=== PATIENT | female | born 1985 | race African-American/Black ===

== ENCOUNTER 2020-03-04 05:28 | Emergency (ER) | payer SELFPAY ==
[~2020-03-04] VITALS: Ht 172.7 cm; Wt 2.5 kg
--- NOTE | 2020-03-04 05:30 | NUR ---
ED Nurse Note: Patient brought in by ambulance RA [id number] from home with c/o abdominal pain onset 2 days ago. Patient rates pain 10/10 and on epigastric area. Patient has hx of ulcers and was seen at [place] for same problem and was taking antacids. Patient is nauseated and vomited at bedside approx 20mls of gastric juice. Patient denies injury/trauma, fever and chills, CP/SOB/, blood in stool. Patient is AAOX4 and ambulatory
--- NOTE | 2020-03-04 05:31 | NUR ---
ED Nurse Note: ERMD at bedside
--- NOTE | 2020-03-04 05:38 | Emergency Room Report ---
History of Present Illness General Chief Complaint: To Be Triaged Source: Patient, EMS (Gera Negron MD) Present Illness HPI This is a 34-year-old female with history of chronic abdominal pain. She says she gets it frequently since 2018. She said is due to stress. She presents with complaint abdominal pain. Onset for last 2 days. She has nausea and vomiting. Unable to keep anything down. No fever or chills. No diarrhea. Pain is 10 out of 10. Nothing made it better. Nothing made it worse. She was just at [facility] yesterday and was discharged with prescription for medication. She says she is unable to fill the until Thursday. Pain came back so she called 911. (Gera Negron MD) Allergies: Uncoded Allergies: PENICILLIN (Allergy, Mild, 03/04/20) COVID-19 Screening Contact w/high risk pt: No Experienced COVID-19 symptoms?: Yes COVID-19 Testing performed EMERGENCY MEDCL EMT: No (Gera Negron MD) Patient History Past Medical History: see triage record, old chart reviewed Past Surgical History: other Pertinent Family History: none Social History: Denies: smoking Last Menstrual Period: UNK Now: No : 0 Para: 0 Immunizations: other Reviewed Nursing Documentation: PMH: Agreed; PSxH: Agreed (Gera Negron MD) Nursing Documentation-PMH Past Medical History: No History, Except For Hx Gastrointestinal Problems: Yes - ULCERS (Gera Negron MD) Review of Systems Eye: Denies: eye pain, blurred vision ENT: Denies: ear pain, nose congestion, throat swelling Respiratory: Denies: cough, shortness of breath Cardiovascular: Denies: chest pain, palpitations Gastrointestinal: Reports: abdominal pain, nausea, vomiting; Denies: diarrhea Musculoskeletal: Denies: back pain, joint pain Skin: Denies: rash Neurological: Denies: headache, numbness Endocrine: Denies: increased thirst, increased urine Hematologic/Lymphatic: Denies: easy bruising All Other Systems: negative except mentioned in HPI (Gera Negron MD) Physical Exam Vital Signs Date Time Temp Pulse Resp B/P (MAP) Pulse Ox O2 Delivery O2 Flow Rate FiO2 03/04/20 05:22 98.2 70 24 116/72 (87) 99 Room Air Vitals normal Sp02 EP Interpretation: reviewed, normal General Appearance: well appearing, no apparent distress, alert Head: normocephalic, atraumatic Eyes: bilateral eye PERRL, bilateral eye EOMI ENT: hearing grossly normal, normal pharynx Neck: full range of motion, supple, no meningismus Respiratory: chest non-tender, lungs clear, normal breath sounds Cardiovascular #1: regular rate, rhythm, no murmur Gastrointestinal: no mass, no organomegaly, no bruit, non-distended, tenderness - Diffuse. Mild. Abdomen is soft., decreased bowel sounds Musculoskeletal: back normal, normal range of motion, gait/station normal Psychiatric: mood/affect normal (Gera Negron MD) Medical Decision Making Diagnostic Impression: Primary Impression: Abdominal pain Qualified Codes: R10.84 - Generalized abdominal pain Additional Impressions: Vomiting Qualified Codes: R11.2 - Nausea with vomiting, unspecified Cannabinoid hyperemesis syndrome ER Course Patient presents with abdominal pain. This appear to be exacerbation of chronic problem. Abdominal exam is soft. Labs are pending. I will sign this patient out to Dr. Perez. (Gera Negron MD) ER Course Patient was initially seen by Dr. Gera Negron and and then signed out to me for final disposition. I have also seen the patient. And fully examined the patient. Patient's physical exam are such that she was nauseous and slightly tender in the epigastrium. Patient received pain medications prior to my evaluation. Of which patient was very comfortable when I saw her. With only very mild epigastric discomfort. She was a little sleepy. Patient's laboratory work-up was negative. Patient received a total of 2 L fluid bolus in the emergency department. Patient was reevaluated after receiving the fluid bolus pain medications and laboratory work-up. Patient states that she has no symptoms at this time would like to be discharged. Patient states that she does have a history of this occurring in the past. She was actually seen at [facility] where she had a full work-up and was given a prescription for Zofran and Pepcid. We also discovered the THC in patient's urine. I informed the patient that this sometimes can cause cannabinoid hyperemesis syndrome and advised that she discontinue any further use of THC. Patient voiced understanding. Patient was given a prescription for Zofran and omeprazole. Patient is advised to follow up with primary doctor in 2-3 days and return the emergency room for any worsening symptoms and as needed. Labs Test 03/04/20 05:40 03/04/20 06:00 White Blood Count 4.7 K/UL (4.8-10.8) Red Blood Count 4.41 M/UL (4.20-5.40) Hemoglobin 9.7 G/DL (12.0-16.0) Hematocrit 32.7 % (37.0-47.0) Mean Corpuscular Volume 74 FL (80-99) Mean Corpuscular Hemoglobin 22.1 PG (27.0-31.0) Mean Corpuscular Hemoglobin Concent 29.8 G/DL (32.0-36.0) Red Cell Distribution Width 17.4 % (11.6-14.8) Platelet Count 184 K/UL (150-450) Mean Platelet Volume 14.4 FL (6.5-10.1) Neutrophils (%) (Auto) 59.3 % (45.0-75.0) Lymphocytes (%) (Auto) 26.4 % (20.0-45.0) Monocytes (%) (Auto) 12.5 % (1.0-10.0) Eosinophils (%) (Auto) 0.5 % (0.0-3.0) Basophils (%) (Auto) 1.3 % (0.0-2.0) Sodium Level 141 MMOL/L (136-145) Potassium Level 3.3 MMOL/L (3.5-5.1) Chloride Level 105 MMOL/L (98-107) Carbon Dioxide Level 23 MMOL/L (21-32) Anion Gap 13 mmol/L (5-15) Blood Urea Nitrogen 6 mg/dL (7-18) Creatinine 0.9 MG/DL (0.55-1.30) Estimat Glomerular Filtration Rate > 60 mL/min (>60) Glucose Level 96 MG/DL (74-106) Calcium Level 8.4 MG/DL (8.5-10.1) Total Bilirubin 0.5 MG/DL (0.2-1.0) Aspartate Amino Transf (AST/SGOT) 19 U/L (15-37) Alanine Aminotransferase (ALT/SGPT) 13 U/L (12-78) Alkaline Phosphatase 54 U/L (46-116) Total Protein 7.7 G/DL (6.4-8.2) Albumin 3.8 G/DL (3.4-5.0) Globulin 3.9 g/dL Albumin/Globulin Ratio 1.0 (1.0-2.7) Lipase 176 U/L (73-393) Urine Color Pale yellow Urine Appearance Slightly cloudy Urine pH 8 (4.5-8.0) Urine Specific [place] 1.015 (1.005-1.035) Urine Protein 1+ (NEGATIVE) Urine Glucose (UA) Negative (NEGATIVE) Urine Ketones 4+ (NEGATIVE) Urine Blood Negative (NEGATIVE) Urine Nitrite Negative (NEGATIVE) Urine Bilirubin Negative (NEGATIVE) Urine Urobilinogen Normal MG/DL (0.0-1.0) Urine Leukocyte Esterase Negative (NEGATIVE) Urine RBC 0-2 /HPF (0 - 2) Urine WBC 0-2 /HPF (0 - 2) Urine Squamous Epithelial Cells Moderate /LPF (NONE/OCC) Urine Bacteria Many /HPF (NONE) Urine HCG, Qualitative Negative (NEGATIVE) Urine Opiates Screen Negative (NEGATIVE) Urine Barbiturates Screen Negative (NEGATIVE) Phencyclidine (PCP) Screen Negative (NEGATIVE) Urine Amphetamines Screen Negative (NEGATIVE) Urine Benzodiazepines Screen Negative (NEGATIVE) Urine Cocaine Screen Negative (NEGATIVE) Urine Marijuana (THC) Screen Positive (NEGATIVE) (Darshan Perez MD) Last Vital Signs Date Time Temp Pulse Resp B/P (MAP) Pulse Ox O2 Delivery O2 Flow Rate FiO2 03/04/20 05:22 98.2 70 24 116/72 (87) 99 Room Air Status: improved (Gera Negron MD) Status: improved (Darshan Perez MD) Disposition: HOME, SELF-CARE Condition: Stable Scripts Ondansetron (Zofran) 4 Mg Tablet 4 MG ORAL Q6H PRN for Nausea & Vomiting, #20 TAB 0 Refills Prov: Darshan Perez MD 03/04/20 Omeprazole (OMEPRAZOLE) 40 Mg Capsule. 40 MG ORAL DAILY for Gerd, #30 CAP Prov: Darshan Perez MD 03/04/20 Gera Negron MD Mar 04, 2020 05:38 Darshan Perez MD Mar 04, 2020 07:45
[2020-03-04] MEDS ORDERED: Pantoprazole Inj IVP ONE (05:45)
[2020-03-04] MEDS ORDERED: LORazepam Inj 2mg/ml 1ml IV ONE (05:45)
[2020-03-04] MEDS ORDERED: Morphine Sulfate 4mg/ml Inj (IV USE ONLY) IVP ONE (05:45)
--- NOTE | 2020-03-04 05:45 | NUR ---
ED Nurse Note: Blood and urine sent to lab
[2020-03-04 05:57] LABS: ANION GAP 13 mmol/L (5-15); BLOOD UREA NITROGEN 6 mg/dL (7-18); CALCIUM 8.4 MG/DL (8.5-10.1); CARBON DIOXIDE 23 MMOL/L (21-32); CHLORIDE 105 MMOL/L (98-107); CREATININE 0.9 MG/DL (0.55-1.30); POTASSIUM 3.3 MMOL/L (3.5-5.1); SODIUM 141 MMOL/L (136-145)
[2020-03-04 06:01] LABS: ALANINE AMINOTRANSFERASE 13 U/L (12-78); ALBUMIN 3.8 G/DL (3.4-5.0); ALKALINE PHOSPHATASE 54 U/L (46-116); ASPARTATE AMINO TRANSFERASE 19 U/L (15-37); BILIRUBIN,TOTAL 0.5 MG/DL (0.2-1.0)
[2020-03-04 06:03] VITALS: BP 125/85
[2020-03-04 06:05] LABS: BASOPHILS % (AUTO) 1.3 % (0.0-2.0); EOSINOPHILS % (AUTO) 0.5 % (0.0-3.0); HEMATOCRIT 32.7 % (37.0-47.0); HEMOGLOBIN 9.7 G/DL (12.0-16.0); LYMPHOCYTES % (AUTO) 26.4 % (20.0-45.0); MEAN CORPUSCULAR VOLUME 74 FL (80-99); MONOCYTES % (AUTO) 12.5 % (1.0-10.0); NEUTROPHILS % (AUTO) 59.3 % (45.0-75.0); PLATELET COUNT 184 K/UL (150-450); RED BLOOD COUNT 4.41 M/UL (4.20-5.40); RED CELL DISTRIBUTION WIDTH 17.4 % (11.6-14.8); WHITE BLOOD COUNT 4.7 K/UL (4.8-10.8)
[2020-03-04 06:14] LABS: APPEARANCE,URINE SLIGHTLY CLOUDY; BILIRUBIN, URINE NEGATIVE (NEGATIVE); GLUCOSE, URINE (UA) NEGATIVE (NEGATIVE); KETONES,URINE 4+ (NEGATIVE); LEUKOCYTE ESTERASE ,URINE NEGATIVE (NEGATIVE); NITRITE,URINE NEGATIVE (NEGATIVE); PH,URINE 8 (4.5-8.0); PROTEIN,URINE 1+ (NEGATIVE); UROBILINOGEN,URINE NORMAL MG/DL (0.0-1.0)
[2020-03-04 06:24] LABS: COLOR,URINE PALE YELLOW
--- NOTE | 2020-03-04 07:03 | NUR ---
HAND-OFF: Report given to ELOISE Eller
[2020-03-04] MEDS ORDERED: OMEPRAZOLE40 M1 ORAL (07:40)
--- NOTE | 2020-03-04 07:40 | NUR ---
ED Nurse Note: DR Perez at the bed side. Patient awake and responding well at this time. Patient reports lower abd pain and not actively vomiting at this time.
[2020-03-04] MEDS ORDERED: ZOFRAN4 MG ORAL (07:42)
[2020-03-04 07:53] VITALS: BP 122/70
--- NOTE | 2020-03-04 07:53 | NUR ---
Note robin in EDM - 03/04/20 at 0831 by AYAH ER DISCHARGE NOTE: Patient is cleared to be discharged per ERMD, pt is aox4, on room air, with stable vital signs. pt was given dc and prescription instructions, pt was able to verbalize understanding, pt id band and iv site removed without complications. pt is able to ambulate with steady gait. pt took all belongings.
--- NOTE | 2020-03-04 07:53 | NUR ---
Note robin in EDM - 03/04/20 at 0832 by AYAH ER DISCHARGE NOTE: Patient is cleared to be discharged per ERMD, pt is aox4, on room air, with stable vital signs. pt was given dc and prescription instructions, pt was able to verbalize understanding, pt id band and iv site removed without complications. pt was assisted on a wheelchair to a car. pt took all belongings and left with her roommate.
[2020-03-04 08:30] VITALS: BP 122/70
--- NOTE | 2020-03-04 08:30 | NUR ---
ER DISCHARGE NOTE: Patient is cleared to be discharged per ERMD, pt is aox4, on room air, with stable vital signs. pt was given dc and prescription instructions, pt was able to verbalize understanding, pt id band and iv site removed without complications. pt was assisted on a wheelchair to a car. pt took all belongings and left with her roommate.
== END 2020-03-04 08:30 | disposition home or self-care (01) ==
LOC: EDBD 05:28 → EMR 05:37
DX: R10.84 Generalized abdominal pain (principal); R11.2 Nausea with vomiting, unspecified; Z88.0 Allergy status to penicillin
CPT/HCPCS: 36415; 80053; 80307; 81003; 81025; 83690; 85025; 87086; 96361; 96374; 96375; 96376; 99284; C9113; J2270; J2405; J7030

== ENCOUNTER 2020-03-05 04:38 | Emergency (ER) | payer SELFPAY ==
[~2020-03-05] VITALS: Ht 170.2 cm; Wt 80.7 kg
[~2020-03-05 04:38] MED LIST: OMEPRAZOLE40 M1 ORAL; ZOFRAN4 MG ORAL
--- NOTE | 2020-03-05 04:50 | NUR ---
ED Nurse Note: Patient brought in by ambulance [id number] from home d/t n/v and abdominal pain 10/10 for 3 days, patient reports she was diagnosed with stomach ulcers yesterday. Patient aao x 4 and ambulatory. Patient changed into gown and placed on nuclear monitoring technician. No acute distress noted during assessment.
[2020-03-05 04:52] VITALS: BP 129/78
--- NOTE | 2020-03-05 04:52 | Emergency Room Report ---
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 She presents with chief complaint abdominal pain with nausea and vomiting. Onset today. She was here 24 hours ago for the same thing. Before that she was at [place]. She said that she could not fill her medication until Thursday. This is a recurrent issue for her. She did well when she was here yesterday after IV fluid and pain medication. She was able to tolerate p.o. intake. When she went home symptoms came back when she started trying to eat and drink again. Pain is sharp in nature. 10 out of 10. Vomiting is nonbloody nonbilious. Nothing made it better. Drinking made it worse. Denies any other complaint. (Gera Negron MD) Allergies: Uncoded Allergies: PENICILLIN (Allergy, Mild, 03/04/20) COVID-19 Screening Contact w/high risk pt: No Experienced COVID-19 symptoms?: No COVID-19 Testing performed BATCH MIXER: No (Gera Negron MD) Patient History Past Medical History: see triage record, old chart reviewed Past Surgical History: none Pertinent Family History: none Social History: Denies: smoking Last Menstrual Period: 02/02/20 Now: No Immunizations: other Reviewed Nursing Documentation: PMH: Agreed; PSxH: Agreed (Gera Negron MD) Nursing Documentation-PMH Past Medical History: No History, Except For Hx Gastrointestinal Problems: Yes - ULCERS (Gera Negron MD) Review of Systems Eye: Denies: eye pain, blurred vision ENT: Denies: ear pain, nose congestion, throat swelling Respiratory: Denies: cough, shortness of breath Cardiovascular: Denies: chest pain, palpitations Gastrointestinal: Reports: abdominal pain, nausea, vomiting; Denies: diarrhea Musculoskeletal: Denies: back pain, joint pain Skin: Denies: rash Neurological: Denies: headache, numbness Endocrine: Denies: increased thirst, increased urine Hematologic/Lymphatic: Denies: easy bruising All Other Systems: negative except mentioned in HPI (Gera Negron MD) Physical Exam Vital Signs Date Time Temp Pulse Resp B/P (MAP) Pulse Ox O2 Delivery O2 Flow Rate FiO2 03/05/20 04:40 99.0 54 18 133/74 (93) 100 Room Air Vitals normal Sp02 EP Interpretation: reviewed, normal General Appearance: well appearing, no apparent distress, alert Head: normocephalic, atraumatic Eyes: bilateral eye PERRL, bilateral eye EOMI ENT: hearing grossly normal, normal pharynx Neck: full range of motion, supple, no meningismus Respiratory: chest non-tender, lungs clear, normal breath sounds Cardiovascular #1: regular rate, rhythm, no murmur Gastrointestinal: normal bowel sounds, no mass, no organomegaly, no bruit, non- distended, tenderness - Diffuse Musculoskeletal: back normal, normal range of motion, gait/station normal Psychiatric: mood/affect normal (Gera Negron MD) Medical Decision Making Diagnostic Impression: Primary Impression: Abdominal pain Qualified Codes: R10.84 - Generalized abdominal pain Additional Impression: Cannabinoid hyperemesis syndrome ER Course Presents with abdominal pain with vomiting. This is probably cyclic vomiting syndrome secondary to cannabis use. No evidence of an acute abdomen. Patient will be hydrated. If not better, may need to be admitted to the hospital. (Gera Negron MD) ER Course Patient signed out to me pending reassessment. She has had multiple recent visits for cyclical vomiting. Patient observed by me for an additional 2 hours with no recurrent vomiting. Sleeping comfortably. Pain controlled. On my reassessment feeling improved. Will be discharged home. She does have prescriptions for antiemetics that she has not filled from her recent visit. I instructed her to fill this medication today. Avoid marijuana use. And follow- up with PMD. Given return precautions. (Dre Sotelo M.D.) Last Vital Signs Date Time Temp Pulse Resp B/P (MAP) Pulse Ox O2 Delivery O2 Flow Rate FiO2 03/05/20 04:40 99.0 54 18 133/74 (93) 100 Room Air Status: improved (Gera Negron MD) Disposition: HOME, SELF-CARE Condition: Stable Referrals: NOT CHOSEN IPA/,REFERRING (PCP) Gera Negron MD Mar 05, 2020 04:52 Dre Sotelo M.D. Mar 05, 2020 07:22
[2020-03-05] MEDS ORDERED: Morphine Sulfate 4mg/ml Inj (IV USE ONLY) IVP ONE ×2 (05:00→06:00)
[2020-03-05 05:11] LABS: BASOPHILS % (AUTO) 2.2 % (0.0-2.0); HEMATOCRIT 32.3 % (37.0-47.0); HEMOGLOBIN 9.4 G/DL (12.0-16.0); LYMPHOCYTES % (AUTO) 53.2 % (20.0-45.0); MEAN CORPUSCULAR VOLUME 76 FL (80-99); MONOCYTES % (AUTO) 7.1 % (1.0-10.0); NEUTROPHILS % (AUTO) 37.5 % (45.0-75.0); PLATELET COUNT 162 K/UL (150-450); RED BLOOD COUNT 4.23 M/UL (4.20-5.40); RED CELL DISTRIBUTION WIDTH 17.1 % (11.6-14.8); WHITE BLOOD COUNT 9.1 K/UL (4.8-10.8)
[2020-03-05 05:13] LABS: ANION GAP 14 mmol/L (5-15); BLOOD UREA NITROGEN 4 mg/dL (7-18); CALCIUM 8.5 MG/DL (8.5-10.1); CARBON DIOXIDE 22 MMOL/L (21-32); CHLORIDE 104 MMOL/L (98-107); CREATININE 0.9 MG/DL (0.55-1.30); POTASSIUM 3.2 MMOL/L (3.5-5.1); SODIUM 140 MMOL/L (136-145)
[2020-03-05 05:17] LABS: ALANINE AMINOTRANSFERASE 13 U/L (12-78); ALBUMIN 3.7 G/DL (3.4-5.0); ALBUMIN/GLOBULIN RATIO 0.9 (1.0-2.7); ALKALINE PHOSPHATASE 51 U/L (46-116); ASPARTATE AMINO TRANSFERASE 17 U/L (15-37); BILIRUBIN,TOTAL 0.6 MG/DL (0.2-1.0)
--- NOTE | 2020-03-05 05:31 | NUR ---
ED Nurse Note: urine collected and sent to lab
[2020-03-05 05:45] LABS: APPEARANCE,URINE CLEAR; BILIRUBIN, URINE NEGATIVE (NEGATIVE); COLOR,URINE PALE YELLOW; GLUCOSE, URINE (UA) NEGATIVE (NEGATIVE); KETONES,URINE 4+ (NEGATIVE); LEUKOCYTE ESTERASE ,URINE NEGATIVE (NEGATIVE); NITRITE,URINE NEGATIVE (NEGATIVE); PH,URINE 6 (4.5-8.0); PROTEIN,URINE NEGATIVE (NEGATIVE); UROBILINOGEN,URINE NORMAL MG/DL (0.0-1.0)
[2020-03-05 07:30] VITALS: BP 133/74
--- NOTE | 2020-03-05 07:30 | NUR ---
ER DISCHARGE NOTE: Patient is cleared to be discharged per ERMD, pt is aox4, on room air, with stable vital signs. pt was given dc and prescription instructions, pt was able to verbalize understanding, pt id band and iv site removed without complications. pt is able to ambulate with steady gait. pt took all belongings.
[2020-03-06] MEDS ORDERED: FAMOTIDINE20 MG ORAL (13:40)
[2020-03-06] MEDS ORDERED: ZOFRAN4 M3 ORAL (13:40)
== END 2020-03-05 07:30 | disposition home or self-care (01) ==
LOC: EDBD 04:38 → EMR 04:48
DX: F12.988 Cannabis use, unspecified with other cannabis-induced disorder (principal); R10.84 Generalized abdominal pain; Z88.0 Allergy status to penicillin; R11.10 Vomiting, unspecified
CPT/HCPCS: 36415; 80053; 81003; 81025; 83690; 85025; 96361; 96374; 96375; 96376; 99284; J2270; J2405; J7030

== ENCOUNTER 2020-03-06 11:17 | Inpatient (IN) | payer MEDICAID ==
[~2020-03-06] VITALS: Ht 170.2 cm; Wt 78.9 kg
[2020-03-06 11:40] VITALS: BP 113/69
--- NOTE | 2020-03-06 11:50 | NUR ---
ED Nurse Note: Patient walked in to ER from home c/o abd N/V and abd pain since 03/03, pt states that she has been in and out of the hospital for these symptoms, has been taking famotidine and ondansetron as prescribed at home but they are not working. Patient presented anxious, AAO x4, VSS at this time.
[2020-03-06] MEDS ORDERED: Haloperidol 5mg/ml Inj IM ONE (12:00)
--- NOTE | 2020-03-06 12:09 | NUR ---
ED Nurse Note: IV line was established on right AC 20ga, blood and urine specinens were colected sent to lab
[2020-03-06 12:23] LABS: HEMATOCRIT 36.9 % (37.0-47.0); HEMOGLOBIN 10.3 G/DL (12.0-16.0); MEAN CORPUSCULAR VOLUME 79 FL (80-99); PLATELET COUNT 60 K/UL (150-450); RED BLOOD COUNT 4.67 M/UL (4.20-5.40); RED CELL DISTRIBUTION WIDTH 17.4 % (11.6-14.8); WHITE BLOOD COUNT 10.7 K/UL (4.8-10.8)
[2020-03-06] MEDS ORDERED: Morphine Sulfate 4mg/ml Inj (IV USE ONLY) IVP ONE ×2 (12:30→13:45)
[2020-03-06 12:39] LABS: ALANINE AMINOTRANSFERASE 9 U/L (12-78); ALBUMIN 4.2 G/DL (3.4-5.0); ALKALINE PHOSPHATASE 60 U/L (46-116); ANION GAP 16 mmol/L (5-15); ASPARTATE AMINO TRANSFERASE 16 U/L (15-37); BILIRUBIN,TOTAL 0.6 MG/DL (0.2-1.0); BLOOD UREA NITROGEN 5 mg/dL (7-18); CALCIUM 8.9 MG/DL (8.5-10.1); CARBON DIOXIDE 22 MMOL/L (21-32); CHLORIDE 101 MMOL/L (98-107); CREATININE 0.9 MG/DL (0.55-1.30); SODIUM 139 MMOL/L (136-145)
[2020-03-06 12:42] LABS: APPEARANCE,URINE SLIGHTLY CLOUDY; BILIRUBIN, URINE NEGATIVE (NEGATIVE); COLOR,URINE PALE YELLOW; GLUCOSE, URINE (UA) NEGATIVE (NEGATIVE); KETONES,URINE 4+ (NEGATIVE); LEUKOCYTE ESTERASE ,URINE NEGATIVE (NEGATIVE); NITRITE,URINE NEGATIVE (NEGATIVE); PH,URINE 6 (4.5-8.0); PROTEIN,URINE NEGATIVE (NEGATIVE); UROBILINOGEN,URINE NORMAL MG/DL (0.0-1.0)
[2020-03-06 12:56] VITALS: BP 122/81
[2020-03-06] MEDS ORDERED: Omnipaque-300 100ml vial INJ PRN (13:15)
[2020-03-06] MEDS ORDERED: cefTRIAXone 1 GM in NS 55 ML IVPB ONE (13:30)
--- NOTE | 2020-03-06 13:38 | Emergency Room Report ---
History of Present Illness General Chief Complaint: Abdominal Pain Source: Patient Present Illness HPI 34-year-old female with past medical history of marijuana use presents with chief complaint of diffuse abdominal pain. She was seen yesterday and the day before in the emergency department. She states that she has been compliant with the medication she was prescribed. She has been taking Zofran and Pepcid without relief of her abdominal pain, nausea, and vomiting. She denies melena, hematochezia, dysuria, hematuria, fall, trauma, fever, chest pain, shortness of breath, cough or any other symptoms. The patient's symptoms were gradual onset, severity was moderate, duration since 3 days. She states she last smoked marijuana several weeks ago, however there is secondhand smoke in her house and has been exposed for the past several days.. Quality: Aching. Poorly localized. Denies heavy menstrual bleeding Past medical history: Marijuana use Past surgical history: Denies Smoking: Denies Alcohol use: Denies Drug use: ++ Marijuana Review of systems: CONST: No fevers ++ chills, No night sweats PULMONARY: No productive cough, No shortness of breath CARDIAC: No chest pain, No palpitations GI: ++ vomiting, No diarrhea , No melena_or_BRBPR : No dysuria, No hematuria, No discharge NEURO: No new_focal_weakness_or_numbness, No confusion, No vision changes 14 point Review of Systems is otherwise negative except per HPI Physical Exam: GENERAL: Awake_alert_ nontoxic, mild acute distress Spo2 98% on RA -normal. Actively vomiting. EYES: Extraocular muscles are intact. Conjunctivae clear. Lids without swelling ENT: External nose and ear normal_in_appearance. Oropharynx clear. Head_atraumatic, dry_oral_mucosa NECK: No JVD. No meningismus. No thyromegaly. Supple. Trachea midline RESP: Normal respiratory effort. Symmetric rise. No stridor. Clear_to_auscultation_No_rales_No_wheezes CARDIAC: Bradycardic and regular rhytm. No_significant pedal edema. Negative Terry sign. Negative Rovsing's. Negative obturator. Diffuse voluntary guarding. No CVA tenderness to palpation ABDOMEN: Soft. Nondistended. Nontender_No_rebound_or_guarding. MSK: Normal muscle tone, without rigidity. Extremities without asymmetric deformity or swelling. SKIN: Warm and dry. No visible cyanosis or pallor NEUROLOGIC: Alert, oriented x3. Motor_and_sensation_grossly_intact. No truncal ataxia. Gait_normal Psych: Normal mood and affect, normal judgment and insight - COORDINATION OF CARE Case was discussed with: Patient , Patient's Physician Any labs and imaging that were ordered were interpreted as part of the medical decision making: Medical Decision Making/Plan: Differential diagnosis includes cholecystitis, choledocholithiasis, hepatitis, small bowel obstruction, volvulus, AAA, pancreatitis, atypical appendicitis, gastroparesis, gastritis, peptic ulcer disease, among others. Patient is well appearing but is actively retching on examination. She has diffuse voluntary guarding without any evidence of peritonitis. I did review previous medical records. She was seen here yesterday and the day before. She was discharged with Zofran and Pepcid and instructed to not smoke marijuana anymore as this is likely contributing to her intractable nausea and vomiting. She states that she has quit, however she is exposed to secondhand smoke where she lives. Labs show new onset thrombocytopenia. No evidence of TTP. No evidence of DIC. Patient is not actively bleeding anywhere. Her platelets today are 60, down from 180 a few days ago. She denies history of hematologic abnormality. Will send repeat CBC to confirm. Patient required several antiemetics here in the emergency department with only minimal relief of symptoms. This is now her third visit in 3 days. Will admit for observation as she has failed outpatient. CT is negative for acute surgical pathology. I spoke with , and reviewed the patients presentation, workup, results, and treatment. They will admit the patient for further care and evaluation, and assume care of the patient at this time. The patient denies any bloody stool and has no pain out of proportion to exam, and no significant risk factors for mesenteric ischemia such as atrial fibrillation or severe PAD/PVD (peripheral arterial / vascular disease), thus definitive workup to rule out mesenteric ischemia was not pursued. Patient is afebrile, without any significant tenderness in the RUQ, and a negative [place] sign. The patients presentation does not appear to be consistent with acute cholecystitis and thus definitive imaging to rule it out was not pursued. The patient has no significant risk factors for AAA (abdominal aortic aneurysm) such as age over 50 with history of hypertension, connective tissue disorder, or 1st degree relative with AAA. the patient has normal dorsalis pedis pulses, no radiation of pain to the back, and no pulsatile mass felt on exam. The patients profile was overall low risk for AAA and definitive workup was not pursued. Allergies: Uncoded Allergies: PENICILLIN (Allergy, Mild, 03/04/20) COVID-19 Screening Contact w/high risk pt: No Experienced COVID-19 symptoms?: No COVID-19 Testing performed HEALTH POLICY NURSE: No Nursing Documentation-PMH Hx Gastrointestinal Problems: Yes - ULCERS Physical Exam Vital Signs Date Time Temp Pulse Resp B/P (MAP) Pulse Ox O2 Delivery O2 Flow Rate FiO2 03/06/20 11:21 97.2 58 18 113/69 (84) 99 Room Air Sp02 EP Interpretation: reviewed, normal Medical Decision Making Diagnostic Impression: Primary Impression: Abdominal pain Additional Impressions: Cannabinoid hyperemesis syndrome Vomiting Thrombocytopenia Marijuana abuse Anemia Hypokalemia EKG Diagnostic Results Troponin ordered: No ASA given to the pt in ED: No Rhythm Strip Diag. Results Rhythm Strip Time: 14:01 EP Interpretation: yes Rate: 60 Rhythm: NSR, no PVC's, no ectopy CT/MRI/US Diagnostic Results CT/MRI/US Diagnostic Results : Impression CT abdomen and pelvis preliminary read Preliminary read Normal appendix. Small amount of pelvic free fluid, probably physiologic. No acute disease. Impression: Normal Written by Jarad Ma MD 03/06/2020 Reevaluation Time: 14:01 Last Vital Signs Date Time Temp Pulse Resp B/P (MAP) Pulse Ox O2 Delivery O2 Flow Rate FiO2 03/06/20 13:05 97.2 03/06/20 12:56 60 14 122/81 99 Room Air Status: improved Disposition: ADMITTED INPATIENT Admit Decision Time: 14:01 Condition: Stable Referrals: NOT CHOSEN IPA/,REFERRING (PCP) Berna Salinas D.O. Mar 06, 2020 13:38
[2020-03-06] MEDS ORDERED: ZOFRAN4 M3 ORAL (13:40)
[2020-03-06] MEDS ORDERED: FAMOTIDINE20 MG ORAL (13:40)
--- NOTE | 2020-03-06 13:43 | NUR ---
ED Nurse Note: Per rn labor delivery, platelet count is not accurate due to"clamping on the smear" Dr. Salinas notified and ordered to repeat Platelet count. JAM Abdi made matteorre.
--- NOTE | 2020-03-06 14:46 | NUR ---
ED Nurse Note: report given to JAM Su.
[2020-03-06 14:57] LABS: BASOPHILS % (AUTO) 4.7 % (0.0-2.0); HEMATOCRIT 31.9 % (37.0-47.0); HEMOGLOBIN 8.8 G/DL (12.0-16.0); LYMPHOCYTES % (AUTO) 13.9 % (20.0-45.0); MEAN CORPUSCULAR VOLUME 80 FL (80-99); MONOCYTES % (AUTO) 13.1 % (1.0-10.0); NEUTROPHILS % (AUTO) 68.3 % (45.0-75.0); PLATELET COUNT 147 K/UL (150-450); RED BLOOD COUNT 4.01 M/UL (4.20-5.40); RED CELL DISTRIBUTION WIDTH 17.7 % (11.6-14.8); WHITE BLOOD COUNT 4.8 K/UL (4.8-10.8)
--- NOTE | 2020-03-06 15:09 | NUR ---
ED Nurse Note: Patient was admited to [facility] unit due to intractable abdominal pain, and thrombocytopenia. Patient was transfered to the unit via gurney, with all belongings. Patient AAO x4, VDSS at this time, pain 3.
[2020-03-06 15:10] VITALS: BP 107/64
--- NOTE | 2020-03-06 15:10 | NUR ---
NURSE NOTES: PATIENT RECEIVED ER DEPT. VIA [facility]. AOX4. AMBULATED TO BED. GUARDING ABDOMEN. C/O MILD PAIN. MEDS GIVEN IN ER HELPED TO SUBSIDE MOST OF HER PAIN. PATIENT ORIENTED TO ROOM. BELONGINGS ACCOUNTED FOR AND CHECKED WITH NURSING PROFESSOR AT BEDSIDE. WILL PLACE CALL TO ADMITTING MD FOR ORDERS. BED IN LOW AND LOCKED POSITION. CALL LIGHT WITHIN REACH.
--- NOTE | 2020-03-06 15:28 | General Progress Note ---
Subjective ROS Limited/Unobtainable: Yes Allergies: Uncoded Allergies: PENICILLIN (Allergy, Mild, 03/04/20) Objective Last 24 Hour Vital Signs Date Time Temp Pulse Resp B/P (MAP) Pulse Ox O2 Delivery O2 Flow Rate FiO2 03/06/20 15:08 97.2 60 14 122/81 99 Room Air 03/06/20 14:17 97.2 03/06/20 13:05 97.2 03/06/20 12:56 60 14 122/81 99 Room Air 03/06/20 11:40 97.2 87 18 113/69 99 Room Air 03/06/20 11:40 58 18 Room Air 03/06/20 11:21 97.2 58 18 113/69 (84) 99 Room Air Laboratory Tests 03/06/20 11:52: White Blood Count 10.7, Red Blood Count 4.67, Hemoglobin 10.3L, Hematocrit 36.9L , Mean Corpuscular Volume 79L, Mean Corpuscular Hemoglobin 22.1L, Mean Corpuscular Hemoglobin Concent 28.0L, Red Cell Distribution Width 17.4H, Platelet Count 60#L, Mean Platelet Volume 15.6H, Neutrophils (%) (Auto) , Lymphocytes (%) (Auto) , Monocytes (%) (Auto) , Eosinophils (%) (Auto) , Basophils (%) (Auto) , Differential Total Cells Counted 100, Neutrophils % (Manual) 69, Lymphocytes % (Manual) 25, Monocytes % (Manual) 6, Eosinophils % (Manual) 0, Basophils % (Manual) 0, Band Neutrophils 0, Platelet Estimate Adequate, Platelet Morphology See comment, Clumped Platelets 3+, Hypochromasia 2+, Microcytosis 2+, Urine Color Pale yellow, Urine Appearance Slightly cloudy, Urine pH 6, Urine Specific [place] 1.015, Urine Protein Negative, Urine Glucose (UA) Negative, Urine Ketones 4+H, Urine Blood Negative, Urine Nitrite Negative, Urine Bilirubin Negative, Urine Urobilinogen Normal, Urine Leukocyte Esterase Negative, Urine RBC 0, Urine WBC 0, Urine Squamous Epithelial Cells Few, Urine Bacteria ModerateH, Sodium Level 139, Potassium Level 3.0L, Chloride Level 101, Carbon Dioxide Level 22, Anion Gap 16H, Blood Urea Nitrogen 5L, Creatinine 0.9, Estimat Glomerular Filtration Rate > 60, Glucose Level 83, Calcium Level 8.9, Total Bilirubin 0.6, Aspartate Amino Transf (AST/SGOT) 16, Alanine Aminotransferase (ALT/SGPT) 9L, Alkaline Phosphatase 60, Total Protein 8.5H, Albumin 4.2, Globulin 4.3, Albumin/Globulin Ratio 1.0, Lipase 226, Urine Opiates Screen Negative, Urine Barbiturates Screen Negative, Phencyclidine (PCP) Screen Negative, Urine Amphetamines Screen Negative, Urine Benzodiazepines Screen Negative, Urine Cocaine Screen Negative, Urine Marijuana (THC) Screen PositiveH 03/06/20 14:27: White Blood Count [Pending], Red Blood Count [Pending], Hemoglobin [Pending], Hematocrit [Pending], Mean Corpuscular Volume [Pending], Mean Corpuscular Hemoglobin [Pending], Mean Corpuscular Hemoglobin Concent [Pending], Red Cell Distribution Width [Pending], Platelet Count [Pending], Mean Platelet Volume [Pending], Neutrophils (%) (Auto) [Pending], Lymphocytes (%) (Auto) [Pending], Monocytes (%) (Auto) [Pending], Eosinophils (%) (Auto) [Pending], Basophils (%) (Auto) [Pending] Height (Feet): 5 Height (Inches): 7.00 Weight (Pounds): 174 General Appearance: alert EENT: normal ENT inspection Neck: supple Cardiovascular: normal rate Respiratory/Chest: lungs clear Abdomen: normal bowel sounds, non tender, soft Extremities: non-tender Assessment/Plan Problem List: (1) Cannabinoid hyperemesis syndrome ICD Codes: R11.2 - Nausea with vomiting, unspecified; F12.90 - Cannabis use, unspecified, uncomplicated SNOMED: 408831864, 907211111 (2) Vomiting ICD Codes: R11.10 - Vomiting, unspecified SNOMED: 629391327 (3) Abdominal pain ICD Codes: R10.9 - Unspecified abdominal pain SNOMED: 99893723 (4) Thrombocytopenia ICD Codes: D69.6 - Thrombocytopenia, unspecified SNOMED: 728937259 (5) Anemia ICD Codes: D64.9 - Anemia, unspecified SNOMED: 951707599 (6) Hypokalemia ICD Codes: E87.6 - Hypokalemia SNOMED: 95263317 Assessment/Plan: IVF pain control control nausea anemia work up replace K repeat labs clears and advance as tolerated avoid THC Francesco Johnson MD Mar 06, 2020 15:28
[2020-03-06] MEDS ORDERED: Morphine Sulfate 2mg/ml Inj(IV/IM USE ONLY) IVP PRN (16:30)
--- NOTE | 2020-03-06 16:30 | NUR ---
NURSE NOTES: PATIENT REMAINS STABLE. ASLEEP. BED IN LOW AND LOCKED POSITION. CALL LIGHT WITHIN REACH.
--- NOTE | 2020-03-06 17:00 | History and Physical Report ---
DATE OF ADMISSION: 03/06/2020 TIME SEEN: 2 p.m. CONSULTATIONS: 1. Francesco Johnson MD. 2. Dr. Woo. CHIEF COMPLAINT: Abdominal pain, vomiting, thrombocytopenia. BRIEF HISTORY: This is a 34-year-old female, who lives at home, presents with three days of increasing abdominal pain, nausea, and vomiting. The patient does not know if she ate anything in the past, came to [place], diagnosed as above, being admitted to medical floor. Currently, slightly anxious in bed, slightly nausea and vomiting. No complaint. REVIEW OF SYSTEMS: No chest pain. No shortness of breath. Slight nausea and vomiting. No diarrhea. PAST MEDICAL HISTORY: Nothing. PAST SURGICAL HISTORY: Nothing. ALLERGIES: Penicillin. MEDICATIONS: Zofran, morphine, , potassium, Haldol. SOCIAL HISTORY: No smoking. No alcohol. No intravenous drug abuse. Positive marijuana. PHYSICAL EXAMINATION: GENERAL: Calm in bed, oriented x3, in no acute distress. VITAL SIGNS: Temperature is 97 degrees, pulse 58, respiratory rate 18, blood pressure 122/81. CARDIOVASCULAR: No murmur. LUNGS: Distant and clear. ABDOMEN: Bowel sounds positive. Nontender. Nondistended. EXTREMITIES: No cyanosis, clubbing, or edema. NEUROLOGIC: The patient moves all extremities, slightly weak. LABORATORY AND DIAGNOSTIC DATA: Labs at this time show hemoglobin and hematocrit 10/36, platelets 60. BMP show potassium 3.0, BUN 5, otherwise normal. ALT is 9. Lipase 226. Urinalysis, 4+ ketone, moderate bacteria. Urine tox positive marijuana. ASSESSMENT: 1. Abdominal pain. 2. Vomiting. 3. Thrombocytopenia. 4. Anemia. 5. Hypokalemia. PLAN: 1. NPO. 2. IV fluids. 3. Zofran and pain control. 4. Replace potassium. 5. Resume home medications. 6. PT and dietary evaluation. 7. CBC and BMP in the morning. Kyle Bob D.O. DR: SHERI JOB#: [id number] CC:
[2020-03-06] MEDS: Lactulose 20gm/30ml UDC ORAL SCH (17:47)
[2020-03-06] MEDS: D5 1/2NS w/KCL 10meq 1,000 ML IV SCH (17:48)
--- NOTE | 2020-03-06 19:08 | NUR ---
NURSE HAND-OFF: Important Events on Shift:N/A Patient Status: STABLE Diet: CLEAR Pending Orders: CT ABD/PELVIS DONE IN ER. Pending Results/Labs:[] Pending MD notification:N/A Latest Vital Signs: Temperature 98.4 , Pulse 57 , B/P 107 /64 , Respiratory Rate 18 , O2 SAT 98 , Room Air, O2 Flow Rate . Vital Sign Comment: STABLE Latest Johnson Fall Score: 35 Fall Risk: Medium Risk Safety Measures: Call light Within Reach, Bed Alarm , Side Rails Side Rails x2, Bed position Low and Locked. Fall Precautions: Yellow Socks Door Sign Patient Fall Education Report given to BRAD OAKES RN .
--- NOTE | 2020-03-06 19:10 | NUR ---
NURSE NOTES: Received report from JAM Su. Rounds done, patient alert, oriented. No complaints of pain or nausea at this time. Tolerating clear liquid diet. IV site intact, infusing IVF.Encouraged patient to call as needed for assistance. Bed is in low position, locked, side rails up x2, call light within reach. Will continue to monitor.
[2020-03-06 20:00] VITALS: BP 107/59
[2020-03-07] VITALS: BP 111/56
[2020-03-07 04:00] VITALS: BP 109/70
[2020-03-07] MEDS: D5 1/2NS w/KCL 10meq 1,000 ML IV SCH ×2 (06:00→18:38)
[2020-03-07 06:01] LABS: HEMATOCRIT 30.8 % (37.0-47.0); HEMOGLOBIN 8.7 G/DL (12.0-16.0); MEAN CORPUSCULAR VOLUME 79 FL (80-99); PLATELET COUNT 23 K/UL (150-450); RED BLOOD COUNT 3.92 M/UL (4.20-5.40); RED CELL DISTRIBUTION WIDTH 17.1 % (11.6-14.8); WHITE BLOOD COUNT 10.2 K/UL (4.8-10.8)
[2020-03-07 06:30] LABS: ALANINE AMINOTRANSFERASE 7 U/L (12-78); ALBUMIN 3.1 G/DL (3.4-5.0); ALBUMIN/GLOBULIN RATIO 0.9 (1.0-2.7); ALKALINE PHOSPHATASE 46 U/L (46-116); ANION GAP 7 mmol/L (5-15); ASPARTATE AMINO TRANSFERASE 15 U/L (15-37); BILIRUBIN,TOTAL 0.3 MG/DL (0.2-1.0); BLOOD UREA NITROGEN 2 mg/dL (7-18); CARBON DIOXIDE 27 MMOL/L (21-32); CHLORIDE 106 MMOL/L (98-107); CREATININE 0.8 MG/DL (0.55-1.30); SODIUM 140 MMOL/L (136-145)
--- NOTE | 2020-03-07 06:45 | Consultation ---
History of Present Illness General Chief Complaint: Abdominal Pain Present Illness Allergies: Uncoded Allergies: PENICILLIN (Allergy, Mild, 03/04/20) Medication History Scheduled Famotidine* (Pepcid 20mg tablet*), 20 MG ORAL DAILY, (Reported) Omeprazole (Omeprazole), 40 MG ORAL DAILY Scheduled PRN Ondansetron (Zofran), 4 MG ORAL Q6H PRN for Nausea & Vomiting Ondansetron* (Zofran*), 4 MG ORAL Q6H PRN for Nausea & Vomiting, (Reported) Patient History Healthcare decision maker N Resuscitation status Advanced Directive on File Physical Exam Last 24 Hour Vital Signs Date Time Temp Pulse Resp B/P (MAP) Pulse Ox O2 Delivery O2 Flow Rate FiO2 03/07/20 04:00 98.1 61 15 109/70 (83) 99 03/07/20 00:00 97.9 66 16 111/56 (74) 98 03/06/20 21:00 Room Air 03/06/20 20:00 97.8 57 16 107/59 (75) 98 03/06/20 15:38 Room Air 03/06/20 15:10 98.4 57 18 107/64 (78) 98 03/06/20 15:08 97.2 60 14 122/81 99 Room Air 03/06/20 14:17 97.2 03/06/20 13:05 97.2 03/06/20 12:56 60 14 122/81 99 Room Air 03/06/20 11:40 97.2 87 18 113/69 99 Room Air 03/06/20 11:40 58 18 Room Air 03/06/20 11:21 97.2 58 18 113/69 (84) 99 Room Air Intake and Output 03/06/20 03/07/20 19:00 07:00 Intake Total 195 ml 480 ml Balance 195 ml 480 ml Intake Oral 120 ml 480 ml IV Total 75 ml # Voids 2 3 Laboratory Tests Test 03/06/20 11:52 03/06/20 14:27 03/07/20 05:21 White Blood Count 10.7 K/UL (4.8-10.8) 4.8 K/UL (4.8-10.8) # 10.2 K/UL (4.8-10.8) # Red Blood Count 4.67 M/UL (4.20-5.40) 4.01 M/UL (4.20-5.40) L 3.92 M/UL (4.20-5.40) L Hemoglobin 10.3 G/DL (12.0-16.0) L 8.8 G/DL (12.0-16.0) L 8.7 G/DL (12.0-16.0) L Hematocrit 36.9 % (37.0-47.0) L 31.9 % (37.0-47.0) L 30.8 % (37.0-47.0) L Mean Corpuscular Volume 79 FL (80-99) L 80 FL (80-99) 79 FL (80-99) L Mean Corpuscular Hemoglobin 22.1 PG (27.0-31.0) L 22.0 PG (27.0-31.0) L 22.2 PG (27.0-31.0) L Mean Corpuscular Hemoglobin Concent 28.0 G/DL (32.0-36.0) L 27.6 G/DL (32.0-36.0) L 28.2 G/DL (32.0-36.0) L Red Cell Distribution Width 17.4 % (11.6-14.8) H 17.7 % (11.6-14.8) H 17.1 % (11.6-14.8) H Platelet Count 60 K/UL (150-450) #L 147 K/UL (150-450) #L 23 K/UL (150-450) #L Mean Platelet Volume 15.6 FL (6.5-10.1) H 11.8 FL (6.5-10.1) H 12.0 FL (6.5-10.1) H Neutrophils (%) (Auto) % (45.0-75.0) 68.3 % (45.0-75.0) % (45.0-75.0) Lymphocytes (%) (Auto) % (20.0-45.0) 13.9 % (20.0-45.0) L % (20.0-45.0) Monocytes (%) (Auto) % (1.0-10.0) 13.1 % (1.0-10.0) H % (1.0-10.0) Eosinophils (%) (Auto) % (0.0-3.0) 0.0 % (0.0-3.0) % (0.0-3.0) Basophils (%) (Auto) % (0.0-2.0) 4.7 % (0.0-2.0) H % (0.0-2.0) Differential Total Cells Counted 100 Neutrophils % (Manual) 69 % (45-75) Pending Lymphocytes % (Manual) 25 % (20-45) Pending Monocytes % (Manual) 6 % (1-10) Eosinophils % (Manual) 0 % (0-3) Basophils % (Manual) 0 % (0-2) Band Neutrophils 0 % (0-8) Platelet Estimate Adequate Pending Platelet Morphology See comment Pending Clumped Platelets 3+ Hypochromasia 2+ Microcytosis 2+ Urine Color Pale yellow Urine Appearance Slightly cloudy Urine pH 6 (4.5-8.0) Urine Specific [place] 1.015 (1.005-1.035) Urine Protein Negative (NEGATIVE) Urine Glucose (UA) Negative (NEGATIVE) Urine Ketones 4+ (NEGATIVE) H Urine Blood Negative (NEGATIVE) Urine Nitrite Negative (NEGATIVE) Urine Bilirubin Negative (NEGATIVE) Urine Urobilinogen Normal MG/DL (0.0-1.0) Urine Leukocyte Esterase Negative (NEGATIVE) Urine RBC 0 /HPF (0 - 2) Urine WBC 0 /HPF (0 - 2) Urine Squamous Epithelial Cells Few /LPF (NONE/OCC) Urine Bacteria Moderate /HPF (NONE) H Sodium Level 139 MMOL/L (136-145) 140 MMOL/L (136-145) Potassium Level 3.0 MMOL/L (3.5-5.1) L 3.0 MMOL/L (3.5-5.1) L Chloride Level 101 MMOL/L (98-107) 106 MMOL/L (98-107) Carbon Dioxide Level 22 MMOL/L (21-32) 27 MMOL/L (21-32) Anion Gap 16 mmol/L (5-15) H 7 mmol/L (5-15) Blood Urea Nitrogen 5 mg/dL (7-18) L 2 mg/dL (7-18) L Creatinine 0.9 MG/DL (0.55-1.30) 0.8 MG/DL (0.55-1.30) Estimat Glomerular Filtration Rate > 60 mL/min (>60) > 60 mL/min (>60) Glucose Level 83 MG/DL (74-106) 96 MG/DL (74-106) Calcium Level 8.9 MG/DL (8.5-10.1) 8.0 MG/DL (8.5-10.1) L Total Bilirubin 0.6 MG/DL (0.2-1.0) 0.3 MG/DL (0.2-1.0) Aspartate Amino Transf (AST/SGOT) 16 U/L (15-37) 15 U/L (15-37) Alanine Aminotransferase (ALT/SGPT) 9 U/L (12-78) L 7 U/L (12-78) L Alkaline Phosphatase 60 U/L (46-116) 46 U/L (46-116) Total Protein 8.5 G/DL (6.4-8.2) H 6.5 G/DL (6.4-8.2) Albumin 4.2 G/DL (3.4-5.0) 3.1 G/DL (3.4-5.0) L Globulin 4.3 g/dL 3.4 g/dL Albumin/Globulin Ratio 1.0 (1.0-2.7) 0.9 (1.0-2.7) L Lipase 226 U/L (73-393) Urine Opiates Screen Negative (NEGATIVE) Urine Barbiturates Screen Negative (NEGATIVE) Phencyclidine (PCP) Screen Negative (NEGATIVE) Urine Amphetamines Screen Negative (NEGATIVE) Urine Benzodiazepines Screen Negative (NEGATIVE) Urine Cocaine Screen Negative (NEGATIVE) Urine Marijuana (THC) Screen Positive (NEGATIVE) H Iron Level Pending Unsaturated Iron Binding Pending Amylase Level Pending Vitamin B12 Level Pending Folate Pending Height (Feet): 5 Height (Inches): 7.00 Weight (Pounds): 174 Medications Current Medications Medications (Trade) Dose Ordered Sig/Sharan Route PRN Reason Start Time Stop Time Status Last Admin Dose Admin Dextrose/ Electrolytes 1,000 ml @ 75 mls/hr [id number] IV 03/06/20 17:00 04/05/20 16:59 03/06/20 17:48 Iohexol (OMNIPAQUE-300 100ml) 100 ml NOW PRN INJ Radiology Procedure 03/06/20 13:15 03/08/20 13:14 Lactulose (Cephulac) 30 gm BID ORAL 03/06/20 18:00 04/05/20 17:59 03/06/20 17:47 Morphine Sulfate (Morphine Sulfate) 2 mg Q4H PRN IVP For Pain 03/06/20 16:30 03/13/20 16:29 Ondansetron HCl (Zofran) 4 mg Q4H PRN IVP Nausea & Vomiting 03/06/20 16:30 04/05/20 16:29 Assessment/Plan Assessment/Plan: Hematology Consultation REQ MD: Yvonne Bob RFC: Thrombocytopenia DOS: 03/07/2020 HPI 34-year-old female with past medical history of marijuana use presents with chief complaint of diffuse abdominal pain. She was seen yesterday and the day before in the emergency department. She states that she has been compliant with the medication she was prescribed. She has been taking Zofran and Pepcid without relief of her abdominal pain, nausea, and vomiting. She denies melena, hematochezia, dysuria, hematuria, fall, trauma, fever, chest pain, shortness of breath, cough or any other symptoms. The patient's symptoms were gradual onset, severity was moderate, duration since 3 days. She states she last smoked marijuana several weeks ago, however there is secondhand smoke in her house and has been exposed for the past several days.. Plts now 147 to 23k. also noted to ahve anemia Past medical history: Marijuana use Past surgical history: Denies Smoking: Denies Alcohol use: Denies Drug use: ++ Marijuana Review of systems: CONST: No fevers ++ chills, No night sweats PULMONARY: No productive cough, No shortness of breath CARDIAC: No chest pain, No palpitations GI: ++ vomiting, No diarrhea , No melena_or_BRBPR : No dysuria, No hematuria, No discharge NEURO: No new_focal_weakness_or_numbness, No confusion, No vision changes 14 point Review of Systems is otherwise negative except per HPI Physical Exam: GENERAL: Awake alert HEENT: Extraocular muscles are intact. RESP: Normal respiratory effort. Symmetric rise. No stridor. Ctab CARDIAC: Bradycardic and regular rhytm. No_significant pedal edema. Negative Terry sign. Negative Rovsing's. ABDOMEN: Soft. Nondistended. MSK: Normal muscle tone, without rigidity. SKIN: Warm and dry. No visible cyanosis NEUROLOGIC: Alert, oriented x3. Psych: Normal mood and affect Labs: reviewed Imaging: noted Assessment and Resc # Thrombocytopenia acute onset, this is first time she has been admitted, no thrombocytopenia history in the past, no recent ingestion, no recent meds, no spont abortions --> hep and hiv ordered --> us abd ordered --> if above neg and repeat low plts start steriods --> r/o DIC as well --> meds reviewed --> 180-->60-->23 # Anemia r/o iron deficiency --> anemia panel ordered --> transf prn -> per gi eval # Hypokalemia --> replete with k # Abd pain -> Zofran and Pepcid --> do no smoke thc # Dvt ppx scds Appreciate consultation and dw Carrington Santizo MD Mar 07, 2020 06:45
[2020-03-07 06:46] LABS: AMYLASE 46 U/L (25-115)
[2020-03-07 06:47] LABS: % IRON SATURATION 2 % (15-50); IRON 9 ug/dL (50-175); TOTAL IRON BINDING CAPACITY 372 ug/dL (250-450)
--- NOTE | 2020-03-07 06:58 | NUR ---
NURSE NOTES: Dr Woo was here earlier and new orders were taken. Patient had large amount of liquid stool (patient taking Lactulose), stool sample sent to lab.
--- NOTE | 2020-03-07 07:04 | NUR ---
NURSE HAND-OFF: IImportant Events on Shift: stool sample sent to lab this morning, Dr Woo saw patient, new orders, Patient Status: Diet: NPO Pending Orders: repeat CBC, abdominal ultrasound Pending Results/Labs:[] Pending MD notification: Dr Woo aware of CBC results Latest Vital Signs: Temperature 98.1 , Pulse 61 , B/P 109 /70 , Respiratory Rate 15 , O2 SAT 99 , Room Air, O2 Flow Rate . Vital Sign Comment: [] Latest Johnson Fall Score: 35 Fall Risk: Medium Risk Safety Measures: Call light Within Reach, Bed Alarm Zone 1, Side Rails Side Rails x2, Bed position Low and Locked. Fall Precautions: Patient Fall Education Report given to JAM Mayo. Addendum: 03/07/20 at 0754 by Kenzie Del Valle RN 0745: report given to JAM Mayo
[2020-03-07 07:20] LABS: FERRITIN 7 NG/ML (8-388); LACTATE DEHYDROGENASE 189 U/L (81-234)
--- NOTE | 2020-03-07 07:46 | NUR ---
NURSE NOTES: Received report from JAM Espino. Rounding done with manufacturing shift supervisor nurse. Pt a/o x4, in bed. No discomfort noted. Denies any pain, N/V at this time. Discussed POC specially US of ABD. Instructed NPO again. Bed in lowest position, call light within reach. Will continue to monitor.
[2020-03-07 08:00] VITALS: BP 97/65
--- NOTE | 2020-03-07 08:05 | NUR ---
NURSE NOTES: Potassium 3.0. Informed Dr. Bob. ordered kcl 40 meq po one time.
[2020-03-07 08:40] LABS: BASOPHILS % (AUTO) 1.6 % (0.0-2.0); EOSINOPHILS % (AUTO) 0.6 % (0.0-3.0); HEMATOCRIT 32.2 % (37.0-47.0); HEMOGLOBIN 9.2 G/DL (12.0-16.0); LYMPHOCYTES % (AUTO) 37.6 % (20.0-45.0); MEAN CORPUSCULAR VOLUME 78 FL (80-99); MONOCYTES % (AUTO) 13.2 % (1.0-10.0); NEUTROPHILS % (AUTO) 47.1 % (45.0-75.0); PLATELET COUNT 143 K/UL (150-450); RED BLOOD COUNT 4.11 M/UL (4.20-5.40); WHITE BLOOD COUNT 5.4 K/UL (4.8-10.8)
--- NOTE | 2020-03-07 09:27 | General Progress Note ---
Subjective Constitutional: Reports: weakness Allergies: Uncoded Allergies: PENICILLIN (Allergy, Mild, 03/04/20) All Systems: reviewed and negative except above Subjective calm in bed Objective Last 24 Hour Vital Signs Date Time Temp Pulse Resp B/P (MAP) Pulse Ox O2 Delivery O2 Flow Rate FiO2 03/07/20 04:00 98.1 61 15 109/70 (83) 99 03/07/20 00:00 97.9 66 16 111/56 (74) 98 03/06/20 21:00 Room Air 03/06/20 20:00 97.8 57 16 107/59 (75) 98 03/06/20 15:38 Room Air 03/06/20 15:10 98.4 57 18 107/64 (78) 98 03/06/20 15:08 97.2 60 14 122/81 99 Room Air 03/06/20 14:17 97.2 03/06/20 13:05 97.2 03/06/20 12:56 60 14 122/81 99 Room Air 03/06/20 11:40 97.2 87 18 113/69 99 Room Air 03/06/20 11:40 58 18 Room Air 03/06/20 11:21 97.2 58 18 113/69 (84) 99 Room Air Intake and Output 03/06/20 03/07/20 19:00 07:00 Intake Total 195 ml 480 ml Output Total 750 ml Balance 195 ml -270 ml Intake Oral 120 ml 480 ml IV Total 75 ml Output Stool Total 750 ml # Voids 2 3 # Bowel Movements 1 Laboratory Tests 03/06/20 11:52: White Blood Count 10.7, Red Blood Count 4.67, Hemoglobin 10.3L, Hematocrit 36.9L , Mean Corpuscular Volume 79L, Mean Corpuscular Hemoglobin 22.1L, Mean Corpuscular Hemoglobin Concent 28.0L, Red Cell Distribution Width 17.4H, Platelet Count 60#L, Mean Platelet Volume 15.6H, Neutrophils (%) (Auto) , Lymphocytes (%) (Auto) , Monocytes (%) (Auto) , Eosinophils (%) (Auto) , Basophils (%) (Auto) , Differential Total Cells Counted 100, Neutrophils % (Manual) 69, Lymphocytes % (Manual) 25, Monocytes % (Manual) 6, Eosinophils % (Manual) 0, Basophils % (Manual) 0, Band Neutrophils 0, Platelet Estimate Adequate, Platelet Morphology See comment, Clumped Platelets 3+, Hypochromasia 2+, Microcytosis 2+, Urine Color Pale yellow, Urine Appearance Slightly cloudy, Urine pH 6, Urine Specific [place] 1.015, Urine Protein Negative, Urine Glucose (UA) Negative, Urine Ketones 4+H, Urine Blood Negative, Urine Nitrite Negative, Urine Bilirubin Negative, Urine Urobilinogen Normal, Urine Leukocyte Esterase Negative, Urine RBC 0, Urine WBC 0, Urine Squamous Epithelial Cells Few, Urine Bacteria ModerateH, Sodium Level 139, Potassium Level 3.0L, Chloride Level 101, Carbon Dioxide Level 22, Anion Gap 16H, Blood Urea Nitrogen 5L, Creatinine 0.9, Estimat Glomerular Filtration Rate > 60, Glucose Level 83, Calcium Level 8.9, Total Bilirubin 0.6, Aspartate Amino Transf (AST/SGOT) 16, Alanine Aminotransferase (ALT/SGPT) 9L, Alkaline Phosphatase 60, Total Protein 8.5H, Albumin 4.2, Globulin 4.3, Albumin/Globulin Ratio 1.0, Lipase 226, Urine Opiates Screen Negative, Urine Barbiturates Screen Negative, Phencyclidine (PCP) Screen Negative, Urine Amphetamines Screen Negative, Urine Benzodiazepines Screen Negative, Urine Cocaine Screen Negative, Urine Marijuana (THC) Screen PositiveH 03/06/20 14:27: White Blood Count 4.8#, Red Blood Count 4.01L, Hemoglobin 8.8L, Hematocrit 31.9L , Mean Corpuscular Volume 80, Mean Corpuscular Hemoglobin 22.0L, Mean Corpuscular Hemoglobin Concent 27.6L, Red Cell Distribution Width 17.7H, Platelet Count 147#L, Mean Platelet Volume 11.8H, Neutrophils (%) (Auto) 68.3, Lymphocytes (%) (Auto) 13.9L, Monocytes (%) (Auto) 13.1H, Eosinophils (%) (Auto) 0.0, Basophils (%) (Auto) 4.7H 03/07/20 05:21: White Blood Count 10.2#, Red Blood Count 3.92L, Hemoglobin 8.7L, Hematocrit 30.8L, Mean Corpuscular Volume 79L, Mean Corpuscular Hemoglobin 22.2L, Mean Corpuscular Hemoglobin Concent 28.2L, Red Cell Distribution Width 17.1H, Platelet Count 23#L, Mean Platelet Volume 12.0H, Neutrophils (%) (Auto) , Lymphocytes (%) (Auto) , Monocytes (%) (Auto) , Eosinophils (%) (Auto) , Basophils (%) (Auto) , Differential Total Cells Counted 100, Neutrophils % (M anual) 45, Lymphocytes % (Manual) 40, Monocytes % (Manual) 13H, Eosinophils % (Manual) 0, Basophils % (Manual) 2, Band Neutrophils 0, Platelet Estimate DecreasedL, Platelet Morphology Normal, Hypochromasia 2+, Microcytosis 1+, Sodium Level 140, Potassium Level 3.0L, Chloride Level 106, Carbon Dioxide Level 27, Anion Gap 7, Blood Urea Nitrogen 2L, Creatinine 0.8, Estimat Glomerular Filtration Rate > 60, Glucose Level 96, Calcium Level 8.0L, Total Bilirubin 0.3, Aspartate Amino Transf (AST/SGOT) 15, Alanine Aminotransferase (ALT/SGPT) 7L, Alkaline Phosphatase 46, Total Protein 6.5, Albumin 3.1L, Globulin 3.4, Albumin/Globulin Ratio 0.9L, Anisocytosis 1+, Ovalocytes Occasional, Iron Level 9L, Total Iron Binding Capacity 372, Percent Iron Saturation 2L, Unsaturated Iron Binding 363H, Ferritin 7L, Lactate Dehydrogenase 189, Amylase Level 46, Vitamin B12 Level 255, Folate 13.2, HIV (1&2) Antibody Rapid Negative 03/07/20 06:46: Stool Occult Blood [Pending] 03/07/20 08:25: White Blood Count 5.4, Red Blood Count 4.11L, Hemoglobin 9.2L, Hematocrit 32.2L, Mean Corpuscular Volume 78L, Mean Corpuscular Hemoglobin 22.3L, Mean Corpuscular Hemoglobin Concent 28.5L, Red Cell Distribution Width 17.0H, Platelet Count 143#L, Mean Platelet Volume 12.0H, Neutrophils (%) (Auto) 47.1, Lymphocytes (%) (Auto) 37.6, Monocytes (%) (Auto) 13.2H, Eosinophils (%) (Auto) 0.6, Basophils (%) (Auto) 1.6, Hepatitis A IgM Antibody [Pending], Hepatitis B Surface Antigen [Pending], Hepatitis B Core IgM Antibody [Pending], Hepatitis C Antibody [Pending] Height (Feet): 5 Height (Inches): 7.00 Weight (Pounds): 174 General Appearance: lethargic EENT: normal ENT inspection Neck: normal alignment Cardiovascular: normal peripheral pulses, normal rate, regular rhythm Respiratory/Chest: chest wall non-tender, lungs clear, normal breath sounds Abdomen: normal bowel sounds, non tender, soft Extremities: normal inspection Edema: no edema noted Arm (L), no edema noted Arm (R), no edema noted Leg (L), no edema noted Leg (R), no edema noted Pedal (L), no edema noted Pedal (R), no edema noted Generalized Neurologic: motor weakness Skin: normal pigmentation, warm/dry Assessment/Plan Problem List: (1) Hypokalemia ICD Codes: E87.6 - Hypokalemia SNOMED: 30457560 (2) Anemia ICD Codes: D64.9 - Anemia, unspecified SNOMED: 602016203 (3) Marijuana abuse ICD Codes: F12.10 - Cannabis abuse, uncomplicated SNOMED: 38323951 (4) Vomiting ICD Codes: R11.10 - Vomiting, unspecified SNOMED: 024652201 (5) Cannabinoid hyperemesis syndrome ICD Codes: R11.2 - Nausea with vomiting, unspecified; F12.90 - Cannabis use, unspecified, uncomplicated SNOMED: 104760182, 997470110 (6) Thrombocytopenia ICD Codes: D69.6 - Thrombocytopenia, unspecified SNOMED: 792937223 (7) Abdominal pain ICD Codes: R10.9 - Unspecified abdominal pain SNOMED: 00091433 Status: unchanged Assessment/Plan: detox pain control gi heme f/u cbc bmp Kyle Pereira DO Mar 07, 2020 09:27
[2020-03-07] MEDS: Lactulose 20gm/30ml UDC ORAL SCH (09:54)
--- NOTE | 2020-03-07 10:10 | General Progress Note ---
Subjective ROS Limited/Unobtainable: Yes Allergies: Uncoded Allergies: PENICILLIN (Allergy, Mild, 03/04/20) Objective Last 24 Hour Vital Signs Date Time Temp Pulse Resp B/P (MAP) Pulse Ox O2 Delivery O2 Flow Rate FiO2 03/07/20 08:00 97.9 58 15 97/65 (76) 98 03/07/20 04:00 98.1 61 15 109/70 (83) 99 03/07/20 00:00 97.9 66 16 111/56 (74) 98 03/06/20 21:00 Room Air 03/06/20 20:00 97.8 57 16 107/59 (75) 98 03/06/20 15:38 Room Air 03/06/20 15:10 98.4 57 18 107/64 (78) 98 03/06/20 15:08 97.2 60 14 122/81 99 Room Air 03/06/20 14:17 97.2 03/06/20 13:05 97.2 03/06/20 12:56 60 14 122/81 99 Room Air 03/06/20 11:40 97.2 87 18 113/69 99 Room Air 03/06/20 11:40 58 18 Room Air 03/06/20 11:21 97.2 58 18 113/69 (84) 99 Room Air Intake and Output 03/06/20 03/07/20 19:00 07:00 Intake Total 195 ml 480 ml Output Total 750 ml Balance 195 ml -270 ml Intake Oral 120 ml 480 ml IV Total 75 ml Output Stool Total 750 ml # Voids 2 3 # Bowel Movements 1 Laboratory Tests 03/06/20 11:52: White Blood Count 10.7, Red Blood Count 4.67, Hemoglobin 10.3L, Hematocrit 36.9L , Mean Corpuscular Volume 79L, Mean Corpuscular Hemoglobin 22.1L, Mean Corpuscular Hemoglobin Concent 28.0L, Red Cell Distribution Width 17.4H, Platelet Count 60#L, Mean Platelet Volume 15.6H, Neutrophils (%) (Auto) , Lymphocytes (%) (Auto) , Monocytes (%) (Auto) , Eosinophils (%) (Auto) , Basophils (%) (Auto) , Differential Total Cells Counted 100, Neutrophils % (Manual) 69, Lymphocytes % (Manual) 25, Monocytes % (Manual) 6, Eosinophils % (Manual) 0, Basophils % (Manual) 0, Band Neutrophils 0, Platelet Estimate Adequate, Platelet Morphology See comment, Clumped Platelets 3+, Hypochromasia 2+, Microcytosis 2+, Urine Color Pale yellow, Urine Appearance Slightly cloudy, Urine pH 6, Urine Specific [place] 1.015, Urine Protein Negative, Urine Glucose (UA) Negative, Urine Ketones 4+H, Urine Blood Negative, Urine Nitrite Negative, Urine Bilirubin Negative, Urine Urobilinogen Normal, Urine Leukocyte Esterase Negative, Urine RBC 0, Urine WBC 0, Urine Squamous Epithelial Cells Few, Urine Bacteria ModerateH, Sodium Level 139, Potassium Level 3.0L, Chloride Level 101, Carbon Dioxide Level 22, Anion Gap 16H, Blood Urea Nitrogen 5L, Creatinine 0.9, Estimat Glomerular Filtration Rate > 60, Glucose Level 83, Calcium Level 8.9, Total Bilirubin 0.6, Aspartate Amino Transf (AST/SGOT) 16, Alanine Aminotransferase (ALT/SGPT) 9L, Alkaline Phosphatase 60, Total Protein 8.5H, Albumin 4.2, Globulin 4.3, Albumin/Globulin Ratio 1.0, Lipase 226, Urine Opiates Screen Negative, Urine Barbiturates Screen Negative, Phencyclidine (PCP) Screen Negative, Urine Amphetamines Screen Negative, Urine Benzodiazepines Screen Negative, Urine Cocaine Screen Negative, Urine Marijuana (THC) Screen PositiveH 03/06/20 14:27: White Blood Count 4.8#, Red Blood Count 4.01L, Hemoglobin 8.8L, Hematocrit 31.9L , Mean Corpuscular Volume 80, Mean Corpuscular Hemoglobin 22.0L, Mean Corpuscular Hemoglobin Concent 27.6L, Red Cell Distribution Width 17.7H, Platelet Count 147#L, Mean Platelet Volume 11.8H, Neutrophils (%) (Auto) 68.3, Lymphocytes (%) (Auto) 13.9L, Monocytes (%) (Auto) 13.1H, Eosinophils (%) (Auto) 0.0, Basophils (%) (Auto) 4.7H 03/07/20 05:21: White Blood Count 10.2#, Red Blood Count 3.92L, Hemoglobin 8.7L, Hematocrit 30.8L, Mean Corpuscular Volume 79L, Mean Corpuscular Hemoglobin 22.2L, Mean Corpuscular Hemoglobin Concent 28.2L, Red Cell Distribution Width 17.1H, Platelet Count 23#L, Mean Platelet Volume 12.0H, Neutrophils (%) (Auto) , Lymphocytes (%) (Auto) , Monocytes (%) (Auto) , Eosinophils (%) (Auto) , Basophils (%) (Auto) , Differential Total Cells Counted 100, Neutrophils % (Manual) 45, Lymphocytes % (Manual) 40, Monocytes % (Manual) 13H, Eosinophils % (Manual) 0, Basophils % (Manual) 2, Band Neutrophils 0, Platelet Estimate DecreasedL, Platelet Morphology Normal, Hypochromasia 2+, Microcytosis 1+, Sodium Level 140, Potassium Level 3.0L, Chloride Level 106, Carbon Dioxide Level 27, Anion Gap 7, Blood Urea Nitrogen 2L, Creatinine 0.8, Estimat Glomerular Filtration Rate > 60, Glucose Level 96, Calcium Level 8.0L, Total Bilirubin 0.3, Aspartate Amino Transf (AST/SGOT) 15, Alanine Aminotransferase (ALT/SGPT) 7L, Alkaline Phosphatase 46, Total Protein 6.5, Albumin 3.1L, Globulin 3.4, Albumin/Globulin Ratio 0.9L, Anisocytosis 1+, Ovalocytes Occasional, Iron Level 9L, Total Iron Binding Capacity 372, Percent Iron Saturation 2L, Unsaturated Iron Binding 363H, Ferritin 7L, Lactate Dehydrogenase 189, Amylase Level 46, Vitamin B12 Level 255, Folate 13.2, HIV (1&2) Antibody Rapid Negative 03/07/20 06:46: Stool Occult Blood [Pending] 03/07/20 08:25: White Blood Count 5.4, Red Blood Count 4.11L, Hemoglobin 9.2L, Hematocrit 32.2L, Mean Corpuscular Volume 78L, Mean Corpuscular Hemoglobin 22.3L, Mean Corpuscular Hemoglobin Concent 28.5L, Red Cell Distribution Width 17.0H, Platelet Count 143#L, Mean Platelet Volume 12.0H, Neutrophils (%) (Auto) 47.1, Lymphocytes (%) (Auto) 37.6, Monocytes (%) (Auto) 13.2H, Eosinophils (%) (Auto) 0.6, Basophils (%) (Auto) 1.6, Hepatitis A IgM Antibody [Pending], Hepatitis B Surface Antigen [Pending], Hepatitis B Core IgM Antibody [Pending], Hepatitis C Antibody [Pending] Height (Feet): 5 Height (Inches): 7.00 Weight (Pounds): 174 General Appearance: alert EENT: PERRL/EOMI Neck: supple Cardiovascular: normal rate Respiratory/Chest: decreased breath sounds Abdomen: normal bowel sounds, non tender, soft Extremities: non-tender Assessment/Plan Problem List: (1) Cannabinoid hyperemesis syndrome ICD Codes: R11.2 - Nausea with vomiting, unspecified; F12.90 - Cannabis use, unspecified, uncomplicated SNOMED: 647562304, 307949189 (2) Vomiting ICD Codes: R11.10 - Vomiting, unspecified SNOMED: 471224767 (3) Abdominal pain ICD Codes: R10.9 - Unspecified abdominal pain SNOMED: 72489508 (4) Thrombocytopenia ICD Codes: D69.6 - Thrombocytopenia, unspecified SNOMED: 012434350 (5) Anemia ICD Codes: D64.9 - Anemia, unspecified SNOMED: 038198625 (6) Hypokalemia ICD Codes: E87.6 - Hypokalemia SNOMED: 50964451 Status: unchanged Assessment/Plan: IVF pain control control nausea anemia work up>>> irob def>>> add venofer>>> fu stool ob replace K repeat labs advance diet to full liquid avoid THC Francesco Johnson MD Mar 07, 2020 10:10
--- NOTE | 2020-03-07 10:18 | Diagnostic Imaging Report ---
Indication: Abdominal distention and pain Technique: Hyatt-scale and duplex images of the upper abdomen were obtained Comparison: Reference made to abdomen pelvis CT 03/06/2020 Findings: Gallbladder is unremarkable. No gallstones or gallbladder wall thickening No gallbladder wall thickening or pericholecystic fluid Common bile duct measures 3 mm in diameter. No intrahepatic biliary ductal dilatation. Liver demonstrates normal echogenicity, no focal abnormality. Portal vein and hepatic veins are patent. Pancreas is unremarkable. Spleen is unremarkable. Left kidney measures 11 cm in length. Right kidney measures 9.9 cm length. Both kidneys demonstrate normal echogenicity. There is no hydronephrosis. No focal abnormality . Non-aneurysmal abdominal aorta . Impression: Negative
--- NOTE | 2020-03-07 10:40 | NUR ---
NURSE NOTES: Dr. Johnson called and informed pt's condition. d/c lactulose.
[2020-03-07] MEDS ORDERED: ONDANSETRON ODT4 MG BC (11:24)
[2020-03-07 12:00] VITALS: BP 104/67
--- NOTE | 2020-03-07 12:58 | NUR ---
CASE MANAGEMENT:INITIAL REVIEW 34 YR OLD FEMALE FROM HOME CC;ABDOMINAL PAIN SI;INTRACTABLE ABD PAIN. THROMBOCYTOPENIA. ANEMIA. THC ABUSE. CANNABINOID HYPEREMESIS SYNDROME. 97.2 58 18 122/81 99% ON RA PLT 60 K+ 3.0 ANION GAP 16 UA+ KETONES, BACTERIA URINE TOX+ THC STOOL OB ~ NEGATIVE ABD US ~ NEGATIVE IS;ROCEPHIN IV MORPHINE IV ZOFRAN IV K-DUR PO MAG SULFATE IV HALDOL IM ONCE ADMITTED TO MED SURG MED SURG STATUS DCP;FROM HOME
--- NOTE | 2020-03-07 14:58 | Diagnostic Imaging Report ---
Clinical Indication: Abdominal pain Technique: No oral contrast utilized, per emergency room physician request IV administration nonionic contrast. Venous phase spiral acquisition obtained through the abdomen and pelvis. Multiplanar reconstructions were generated. Total dose length product 345 mGycm. CTDIvol(s) 6 mGy. Dose reduction achieved using automated exposure control Comparison: none Findings: Normal appendix. No evidence of diverticulosis or diverticulitis. No small bowel distention. No free or loculated intraperitoneal gas. Trace fluid is seen within the pelvis. The distal esophagus, stomach, duodenum are unremarkable. The liver, gallbladder, bile ducts, pancreas, spleen, adrenals, kidneys are unremarkable. No retroperitoneal or mesenteric mass or adenopathy. No pelvic mass or adenopathy. The included lung bases are clear. The bones are unremarkable. Impression: No acute abnormality Trace free pelvic fluid, likely physiologic The CT scanner at [facility] is accredited by the [employer] and the scans are performed using protocols designed to limit radiation exposure to as low as reasonably achievable to attain images of sufficient resolution adequate for diagnostic evaluation.
[2020-03-07 16:00] VITALS: BP 111/69
--- NOTE | 2020-03-07 19:28 | NUR ---
NURSE HAND-OFF: Important Events on Shift: Patient Status: c/o epigastric pain Diet: full liquid Pending Orders: Pending Results/Labs: Pending MD notification: Latest Vital Signs: Temperature 98.6 , Pulse 56 , B/P 111 /69 , Respiratory Rate 15 , O2 SAT 99 , Room Air, O2 Flow Rate . Vital Sign Comment: stable Latest Johnson Fall Score: 35 Fall Risk: Medium Risk Safety Measures: Call light Within Reach, Bed Alarm Zone 1, Side Rails Side Rails x2, Bed position Low and Locked. Fall Precautions: Patient Fall Education Report given to JAM Padron. Pt c/o epigastric pain and endorsed to retail shift leader nurse.
--- NOTE | 2020-03-07 19:30 | NUR ---
NURSE NOTES: Receive a report from JAM Mayo. Round is done. Pt is awake but developed epigastric pain. Pt has got Morphine 2mg IVS 1735. Pt did not eat full liquid diet for dinner. Had 3 x BM so far. Noted BS. IV hydration on Rt AC. Will notify MD. Call light within reach. Will continue to [facility].
[2020-03-07 20:00] VITALS: BP 120/78
--- NOTE | 2020-03-07 20:10 | NUR ---
NURSE NOTES: Receive new order from Dr. Johnson for pain and from Dr. Woo for anti-acid medication. Order noted and carried out. Will continue to monitor.
[2020-03-07] MEDS ORDERED: HYDROmorphone 1mg/ml Carpuject IVP PRN (20:15)
[2020-03-07] MEDS: Iron Sucrose 100 MG in NS 55 ML IVPB SCH (20:54)
--- NOTE | 2020-03-07 21:00 | NUR ---
NURSE NOTES: After new pain medication, pain is relieved. No nausea noted. Given Pepcid 20mg 1t po. Call light within reach. Will continue to monitor. Addendum: 03/07/20 at 2232 by Nereida Vega RN Given instruction to prevent from hitting herself d/t low PLT. No skin discoloration noted.
[2020-03-08] VITALS: BP 109/64
--- NOTE | 2020-03-08 | NUR ---
NURSE NOTES: Denies pain or nausea at this time. Will continue to monitor.
[2020-03-08 04:00] VITALS: BP 103/63
--- NOTE | 2020-03-08 05:00 | NUR ---
NURSE NOTES: Denies pain. No nausea noted. Will continue to monitor.
--- NOTE | 2020-03-08 06:35 | Hematology/Onc Progress Note ---
Assessment/Plan Assessment/Plan Assessment and Resc # Thrombocytopenia acute onset, this is first time she has been admitted, no thrombocytopenia history in the past, no recent ingestion, no recent meds, no spont abortions --> hep and hiv ordered --> us abd ordered --> if above neg and repeat low plts start steriods --> r/o DIC as well --> meds reviewed --> 180-->60-->23-->143 # Anemia r/o iron deficiency --> anemia panel ordered--> cw aid --> transf prn -> per gi eval --> IV IRON x 5 days started # Hypokalemia --> replete with k # Abd pain -> Zofran and Pepcid --> do no smoke thc # Dvt ppx scds Appreciate consultation and grace POLK Subjective HEENT: Denies: no symptoms, eye pain, blurred vision, tearing, double vision, ear pain, ear discharge, nose pain, nose congestion, throat pain, throat swelli ng, mouth pain, mouth swelling, other Cardiovascular: Denies: no symptoms, chest pain, edema, irregular heart rate, lightheadedness, palpitations, syncope, other Respiratory: Denies: no symptoms, cough, shortness of breath, SOB with excertion, SOB at rest, sputum, wheezing, other Gastrointestinal/Abdominal: Denies: no symptoms, abdomen distended, abdominal pain, black stools, tarry stools, blood in stool, constipated, diarrhea, difficulty swallowing, nausea, poor appetite, poor fluid intake, rectal bleeding, vomiting, other Genitourinary: Denies: no symptoms, burning, discharge, frequency, flank pain, hematuria, incontinence, pain, urgency, other Neurologic/Psychiatric: Denies: no symptoms, anxiety, depressed, emotional problems, headache, numbness, paresthesia, pre-existing deficit, seizure, tingling, tremors, weakness, other Endocrine: Denies: no symptoms, excessive sweating, flushing, intolerance to cold, intolerance to heat, increased hunger, increased thirst, increased urine, unexplained weight gain, unexplained weight loss, other Allergies: Coded Allergies: PENICILLINS (Unverified Allergy, Mild, 03/07/20) Uncoded Allergies: PENICILLIN (Allergy, Mild, 03/04/20) Subjective 03/08 no pain, no bleeding, abd feels better, on iv iron at bedside completed Objective Objective Current Medications Medications (Trade) Dose Ordered Sig/Sharan Route PRN Reason Start Time Stop Time Status Last Admin Dose Admin Dextrose/ Electrolytes 1,000 ml @ 75 mls/hr [id number] IV 03/06/20 17:00 04/05/20 16:59 03/07/20 18:38 Famotidine (Pepcid) 20 mg DAILY ORAL 03/08/20 09:00 06/06/20 08:59 Hydromorphone HCl (Dilaudid) 1 mg Q4H PRN IVP Severe Pain (Pain Scale 7-10) 03/07/20 20:15 03/14/20 20:14 03/07/20 20:22 Iohexol (OMNIPAQUE-300 100ml) 100 ml NOW PRN INJ Radiology Procedure 03/06/20 13:15 03/08/20 13:14 Iron Sucrose 100 mg/Sodium Chloride 60 ml @ 240 mls/hr BEDTIME IVPB 03/07/20 21:00 03/11/20 21:14 03/07/20 20:54 Ondansetron HCl (Zofran) 4 mg Q4H PRN IVP Nausea & Vomiting 03/06/20 16:30 04/05/20 16:29 03/07/20 18:35 Last 24 Hour Vital Signs Date Time Temp Pulse Resp B/P (MAP) Pulse Ox O2 Delivery O2 Flow Rate FiO2 03/08/20 04:00 98.1 52 18 103/63 (76) 99 03/08/20 00:00 97.7 59 18 109/64 (79) 99 03/07/20 21:00 Room Air 03/07/20 20:00 98.2 61 15 120/78 (92) 100 03/07/20 16:00 98.6 56 15 111/69 (83) 99 03/07/20 12:00 97.2 62 15 104/67 (79) 99 03/07/20 09:00 Room Air 03/07/20 08:00 97.9 58 15 97/65 (76) 98 03/07/20 04:00 98.1 61 15 109/70 (83) 99 03/07/20 00:00 97.9 66 16 111/56 (74) 98 11/3/20 21:00 Room Air 03/06/20 20:00 97.8 57 16 107/59 (75) 98 03/06/20 15:38 Room Air 03/06/20 15:10 98.4 57 18 107/64 (78) 98 03/06/20 15:08 97.2 60 14 122/81 99 Room Air 03/06/20 14:17 97.2 03/06/20 13:05 97.2 03/06/20 12:56 60 14 122/81 99 Room Air 03/06/20 11:40 97.2 87 18 113/69 99 Room Air 03/06/20 11:40 58 18 Room Air 03/06/20 11:21 97.2 58 18 113/69 (84) 99 Room Air Intake and Output 03/07/20 03/08/20 19:00 07:00 Intake Total 1125 ml 800 ml Output Total 100 ml Balance 1125 ml 700 ml Intake Oral 300 ml 50 ml IV Total 825 ml 750 ml Emesis 100 ml # Voids 4 2 # Bowel Movements 3 Labs Test 03/06/20 11:52 03/06/20 14:27 03/07/20 05:21 03/07/20 06:46 White Blood Count 10.7 K/UL (4.8-10.8) 4.8 K/UL (4.8-10.8) 10.2 K/UL (4.8-10.8) Red Blood Count 4.67 M/UL (4.20-5.40) 4.01 M/UL (4.20-5.40) 3.92 M/UL (4.20-5.40) Hemoglobin 10.3 G/DL (12.0-16.0) 8.8 G/DL (12.0-16.0) 8.7 G/DL (12.0-16.0) Hematocrit 36.9 % (37.0-47.0) 31.9 % (37.0-47.0) 30.8 % (37.0-47.0) Mean Corpuscular Volume 79 FL (80-99) 80 FL (80-99) 79 FL (80-99) Mean Corpuscular Hemoglobin 22.1 PG (27.0-31.0) 22.0 PG (27.0-31.0) 22.2 PG (27.0-31.0) Mean Corpuscular Hemoglobin Concent 28.0 G/DL (32.0-36.0) 27.6 G/DL (32.0-36.0) 28.2 G/DL (32.0-36.0) Red Cell Distribution Width 17.4 % (11.6-14.8) 17.7 % (11.6-14.8) 17.1 % (11.6-14.8) Platelet Count 60 K/UL (150-450) 147 K/UL (150-450) 23 K/UL (150-450) Mean Platelet Volume 15.6 FL (6.5-10.1) 11.8 FL (6.5-10.1) 12.0 FL (6.5-10.1) Neutrophils (%) (Auto) % (45.0-75.0) 68.3 % (45.0-75.0) % (45.0-75.0) Lymphocytes (%) (Auto) % (20.0-45.0) 13.9 % (20.0-45.0) % (20.0-45.0) Monocytes (%) (Auto) % (1.0-10.0) 13.1 % (1.0-10.0) % (1.0-10.0) Eosinophils (%) (Auto) % (0.0-3.0) 0.0 % (0.0-3.0) % (0.0-3.0) Basophils (%) (Auto) % (0.0-2.0) 4.7 % (0.0-2.0) % (0.0-2.0) Differential Total Cells Counted 100 100 Neutrophils % (Manual) 69 % (45-75) 45 % (45-75) Lymphocytes % (Manual) 25 % (20-45) 40 % (20-45) Monocytes % (Manual) 6 % (1-10) 13 % (1-10) Eosinophils % (Manual) 0 % (0-3) 0 % (0-3) Basophils % (Manual) 0 % (0-2) 2 % (0-2) Band Neutrophils 0 % (0-8) 0 % (0-8) Platelet Estimate Adequate Decreased Platelet Morphology See comment Normal Clumped Platelets 3+ Hypochromasia 2+ 2+ Microcytosis 2+ 1+ Urine Color Pale yellow Urine Appearance Slightly cloudy Urine pH 6 (4.5-8.0) Urine Specific [place] 1.015 (1.005-1.035) Urine Protein Negative (NEGATIVE) Urine Glucose (UA) Negative (NEGATIVE) Urine Ketones 4+ (NEGATIVE) Urine Blood Negative (NEGATIVE) Urine Nitrite Negative (NEGATIVE) Urine Bilirubin Negative (NEGATIVE) Urine Urobilinogen Normal MG/DL (0.0-1.0) Urine Leukocyte Esterase Negative (NEGATIVE) Urine RBC 0 /HPF (0 - 2) Urine WBC 0 /HPF (0 - 2) Urine Squamous Epithelial Cells Few /LPF (NONE/OCC) Urine Bacteria Moderate /HPF (NONE) Sodium Level 139 MMOL/L (136-145) 140 MMOL/L (136-145) Potassium Level 3.0 MMOL/L (3.5-5.1) 3.0 MMOL/L (3.5-5.1) Chloride Level 101 MMOL/L (98-107) 106 MMOL/L (98-107) Carbon Dioxide Level 22 MMOL/L (21-32) 27 MMOL/L (21-32) Anion Gap 16 mmol/L (5-15) 7 mmol/L (5-15) Blood Urea Nitrogen 5 mg/dL (7-18) 2 mg/dL (7-18) Creatinine 0.9 MG/DL (0.55-1.30) 0.8 MG/DL (0.55-1.30) Estimat Glomerular Filtration Rate > 60 mL/min (>60) > 60 mL/min (>60) Glucose Level 83 MG/DL (74-106) 96 MG/DL (74-106) Calcium Level 8.9 MG/DL (8.5-10.1) 8.0 MG/DL (8.5-10.1) Total Bilirubin 0.6 MG/DL (0.2-1.0) 0.3 MG/DL (0.2-1.0) Aspartate Amino Transf (AST/SGOT) 16 U/L (15-37) 15 U/L (15-37) Alanine Aminotransferase (ALT/SGPT) 9 U/L (12-78) 7 U/L (12-78) Alkaline Phosphatase 60 U/L (46-116) 46 U/L (46-116) Total Protein 8.5 G/DL (6.4-8.2) 6.5 G/DL (6.4-8.2) Albumin 4.2 G/DL (3.4-5.0) 3.1 G/DL (3.4-5.0) Globulin 4.3 g/dL 3.4 g/dL Albumin/Globulin Ratio 1.0 (1.0-2.7) 0.9 (1.0-2.7) Lipase 226 U/L (73-393) Urine Opiates Screen Negative (NEGATIVE) Urine Barbiturates Screen Negative (NEGATIVE) Phencyclidine (PCP) Screen Negative (NEGATIVE) Urine Amphetamines Screen Negative (NEGATIVE) Urine Benzodiazepines Screen Negative (NEGATIVE) Urine Cocaine Screen Negative (NEGATIVE) Urine Marijuana (THC) Screen Positive (NEGATIVE) Anisocytosis 1+ Ovalocytes Occasional Iron Level 9 ug/dL (50-175) Total Iron Binding Capacity 372 ug/dL (250-450) Percent Iron Saturation 2 % (15-50) Unsaturated Iron Binding 363 ug/dL (112-346) Ferritin 7 NG/ML (8-388) Lactate Dehydrogenase 189 U/L (81-234) Amylase Level 46 U/L (25-115) Vitamin B12 Level 255 PG/ML (193-986) Folate 13.2 NG/ML (8.6-58.9) HIV (1&2) Antibody Rapid Negative (NEGATIVE) Stool Occult Blood Negative (NEGATIVE) Test 03/07/20 08:25 White Blood Count 5.4 K/UL (4.8-10.8) Red Blood Count 4.11 M/UL (4.20-5.40) Hemoglobin 9.2 G/DL (12.0-16.0) Hematocrit 32.2 % (37.0-47.0) Mean Corpuscular Volume 78 FL (80-99) Mean Corpuscular Hemoglobin 22.3 PG (27.0-31.0) Mean Corpuscular Hemoglobin Concent 28.5 G/DL (32.0-36.0) Red Cell Distribution Width 17.0 % (11.6-14.8) Platelet Count 143 K/UL (150-450) Mean Platelet Volume 12.0 FL (6.5-10.1) Neutrophils (%) (Auto) 47.1 % (45.0-75.0) Lymphocytes (%) (Auto) 37.6 % (20.0-45.0) Monocytes (%) (Auto) 13.2 % (1.0-10.0) Eosinophils (%) (Auto) 0.6 % (0.0-3.0) Basophils (%) (Auto) 1.6 % (0.0-2.0) Hepatitis A IgM Antibody Negative (Negative) Hepatitis B Surface Antigen Negative (Negative) Hepatitis B Core IgM Antibody Negative (Negative) Hepatitis C Antibody <0.1 s/co ratio Height (Feet): 5 Height (Inches): 7.00 Weight (Pounds): 174 Objective GENERAL: Awake alert HEENT: Extraocular muscles are intact. RESP: Normal respiratory effort. Symmetric rise. No stridor. Ctab CARDIAC: Bradycardic and regular rhytm. No_significant pedal edema. Negative Terry sign. Negative Rovsing's. ABDOMEN: Soft. Nondistended. MSK: Normal muscle tone, without rigidity. SKIN: Warm and dry. No visible cyanosis NEUROLOGIC: Alert, oriented x3. Psych: Normal mood and affect Carrington Woo MD Mar 08, 2020 06:35
--- NOTE | 2020-03-08 06:36 | NUR ---
NURSE HAND-OFF: Important Events on Shift: epigastric pain, N/V-Given Dilaudid 1mg IVS x1 and Pepcin 20mg 1 t po --->decreased pain, no N/V over night Patient Status: stable Diet: full liquid diet Pending Orders: [-] Pending Results/Labs:CBC, CMP, PT Pending MD notification:[-] Latest Vital Signs: Temperature 98.1 , Pulse 52 , B/P 103 /63 , Respiratory Rate 18 , O2 SAT 99 , Room Air, O2 Flow Rate . Vital Sign Comment: [] Latest Johnson Fall Score: 35 Fall Risk: Medium Risk Safety Measures: Call light Within Reach, Bed Alarm Zone 1, Side Rails Side Rails x2, Bed position Low and Locked. Fall Precautions: Yellow Socks Door Sign Patient Fall Education
[2020-03-08 07:24] LABS: ALANINE AMINOTRANSFERASE 7 U/L (12-78); ALBUMIN 2.9 G/DL (3.4-5.0); ALKALINE PHOSPHATASE 45 U/L (46-116); ANION GAP 7 mmol/L (5-15); ASPARTATE AMINO TRANSFERASE 16 U/L (15-37); BILIRUBIN,TOTAL 0.3 MG/DL (0.2-1.0); BLOOD UREA NITROGEN 1 mg/dL (7-18); CALCIUM 8.2 MG/DL (8.5-10.1); CARBON DIOXIDE 28 MMOL/L (21-32); CHLORIDE 106 MMOL/L (98-107); CREATININE 0.7 MG/DL (0.55-1.30); POTASSIUM 3.3 MMOL/L (3.5-5.1); SODIUM 141 MMOL/L (136-145)
--- NOTE | 2020-03-08 07:30 | NUR ---
NURSE NOTES: Patient is in bed awake and able to verbalize needs. Stable. Denies pain or SOB. Patient instructed to use call light for assistance, verbalized understanding. Plan of care discussed with patient. All safety measures provided. Patient is in bed in locked and lowest position with call light within reach. All needs met at this time. WIll continue to monitor.
--- NOTE | 2020-03-08 07:30 | NUR ---
HAND-OFF: Report given to JAM Barnes. Pt will discharge after lab is done. Addendum: 03/08/20 at 0734 by Nereida Vega RN INCORRECT CHARTING
--- NOTE | 2020-03-08 07:30 | NUR ---
HAND-OFF: Report given to JAM Mcintosh. Round is done. Pt is having breakfast.
[2020-03-08 07:47] LABS: HEMATOCRIT 29.6 % (37.0-47.0); HEMOGLOBIN 8.5 G/DL (12.0-16.0); MEAN CORPUSCULAR VOLUME 76 FL (80-99); RED BLOOD COUNT 3.89 M/UL (4.20-5.40); RED CELL DISTRIBUTION WIDTH 16.7 % (11.6-14.8); WHITE BLOOD COUNT 5.3 K/UL (4.8-10.8)
[2020-03-08 07:49] LABS: INR 1.2 (0.9-1.1)
[2020-03-08 08:00] VITALS: BP 112/65
[2020-03-08 08:24] LABS: PLATELET COUNT 292 K/UL (150-450)
[2020-03-08] MEDS: D5 1/2NS w/KCL 10meq 1,000 ML IV SCH (08:48)
--- NOTE | 2020-03-08 10:00 | General Progress Note ---
Subjective ROS Limited/Unobtainable: No Allergies: Coded Allergies: PENICILLINS (Unverified Allergy, Mild, 03/07/20) Uncoded Allergies: PENICILLIN (Allergy, Mild, 03/04/20) Objective Last 24 Hour Vital Signs Date Time Temp Pulse Resp B/P (MAP) Pulse Ox O2 Delivery O2 Flow Rate FiO2 03/08/20 09:00 Room Air 03/08/20 08:00 98.0 62 18 112/65 (81) 99 03/08/20 04:00 98.1 52 18 103/63 (76) 99 03/08/20 00:00 97.7 59 18 109/64 (79) 99 03/07/20 21:00 Room Air 03/07/20 20:00 98.2 61 15 120/78 (92) 100 03/07/20 16:00 98.6 56 15 111/69 (83) 99 03/07/20 12:00 97.2 62 15 104/67 (79) 99 Intake and Output 03/07/20 03/08/20 19:00 07:00 Intake Total 1125 ml 800 ml Output Total 100 ml Balance 1125 ml 700 ml Intake Oral 300 ml 50 ml IV Total 825 ml 750 ml Emesis 100 ml # Voids 4 2 # Bowel Movements 3 Laboratory Tests 03/08/20 04:50: White Blood Count 5.3, Red Blood Count 3.89L, Hemoglobin 8.5L, Hematocrit 29.6L, Mean Corpuscular Volume 76L, Mean Corpuscular Hemoglobin 21.9L, Mean Corpuscular Hemoglobin Concent 28.8L, Red Cell Distribution Width 16.7H, Platelet Count 292#, Mean Platelet Volume 9.0, Neutrophils (%) (Auto) , Lymphocytes (%) (Auto) , Monocytes (%) (Auto) , Eosinophils (%) (Auto) , Basophils (%) (Auto) , Differential Total Cells Counted 100, Neutrophils % (Manual) 55, Lymphocytes % (Manual) 27, Monocytes % (Manual) 17H, Eosinophils % (Manual) 0, Basophils % (Manual) 0, Band Neutrophils 1, Platelet Estimate Adequate, Platelet Morphology , Clumped Platelets 3+, Polychromasia 1+, Hypochromasia 1+, Anisocytosis 1+, Microcytosis 1+, Prothrombin Time 13.0H, Prothromb Time International Ratio 1.2H , Sodium Level 141, Potassium Level 3.3L, Chloride Level 106, Carbon Dioxide Level 28, Anion Gap 7, Blood Urea Nitrogen 1L, Creatinine 0.7, Estimat Glomerular Filtration Rate > 60, Glucose Level 94, Calcium Level 8.2L, Total Bilirubin 0.3, Aspartate Amino Transf (AST/SGOT) 16, Alanine Aminotransferase (ALT/SGPT) 7L, Alkaline Phosphatase 45L, Total Protein 5.8L, Albumin 2.9L, Globulin 2.9, Albumin/Globulin Ratio 1.0 Height (Feet): 5 Height (Inches): 7.00 Weight (Pounds): 174 General Appearance: alert EENT: normal ENT inspection Neck: supple Cardiovascular: normal peripheral pulses Respiratory/Chest: decreased breath sounds Abdomen: normal bowel sounds, non tender, soft Extremities: non-tender Assessment/Plan Problem List: (1) Cannabinoid hyperemesis syndrome ICD Codes: R11.2 - Nausea with vomiting, unspecified; F12.90 - Cannabis use, unspecified, uncomplicated SNOMED: 821185465, 064799121 (2) Vomiting ICD Codes: R11.10 - Vomiting, unspecified SNOMED: 723179575 (3) Abdominal pain ICD Codes: R10.9 - Unspecified abdominal pain SNOMED: 55466053 (4) Thrombocytopenia ICD Codes: D69.6 - Thrombocytopenia, unspecified SNOMED: 042705071 (5) Anemia ICD Codes: D64.9 - Anemia, unspecified SNOMED: 922089525 (6) Hypokalemia ICD Codes: E87.6 - Hypokalemia SNOMED: 38979220 Status: unchanged Assessment/Plan: IVF>>> will dc pain control control nausea anemia work up>>> irob def>>> add venofer>>> fu stool ob>>>neg replace K repeat labs advance diet to reg avoid THC Francesco Johnson MD Mar 08, 2020 09:59
[2020-03-08 12:00] VITALS: BP 113/75
--- NOTE | 2020-03-08 12:46 | NUR ---
CASE MANAGEMENT:REVIEW SI;CANNABINOID HYPEREMESIS SYNDROME THROMBOCYTOPENIA. ANEMIA. HYPOKALEMIA. 98.2 52 18 120/78 99% ON RA RBC 3.89 H/H 8.5/29.6 K+ 3.3 ALB 2.9 IS;K-DUR PO ONCE PEPCID PO IRON SUCROSE IV IVF D5W @ 75 ML/HR MED SURG STATUS DCP;FROM HOME PLAN; PER HEME ~ RULE OUT DIC
[2020-03-08] MEDS ORDERED: Tubing IV Secondary IV ONE (13:13)
--- NOTE | 2020-03-08 14:04 | General Progress Note ---
Subjective Constitutional: Reports: weakness Allergies: Coded Allergies: PENICILLINS (Unverified Allergy, Mild, 03/07/20) Uncoded Allergies: PENICILLIN (Allergy, Mild, 03/04/20) All Systems: reviewed and negative except above Subjective calm in bed Objective Last 24 Hour Vital Signs Date Time Temp Pulse Resp B/P (MAP) Pulse Ox O2 Delivery O2 Flow Rate FiO2 03/08/20 12:00 98.3 60 18 113/75 (88) 99 03/08/20 09:00 Room Air 03/08/20 08:00 98.0 62 18 112/65 (81) 99 03/08/20 04:00 98.1 52 18 103/63 (76) 99 03/08/20 00:00 97.7 59 18 109/64 (79) 99 03/07/20 21:00 Room Air 03/07/20 20:00 98.2 61 15 120/78 (92) 100 03/07/20 16:00 98.6 56 15 111/69 (83) 99 Intake and Output 03/07/20 03/08/20 19:00 07:00 Intake Total 1125 ml 800 ml Output Total 100 ml Balance 1125 ml 700 ml Intake Oral 300 ml 50 ml IV Total 825 ml 750 ml Emesis 100 ml # Voids 4 2 # Bowel Movements 3 Laboratory Tests 03/08/20 04:50: White Blood Count 5.3, Red Blood Count 3.89L, Hemoglobin 8.5L, Hematocrit 29.6L, Mean Corpuscular Volume 76L, Mean Corpuscular Hemoglobin 21.9L, Mean Corpuscular Hemoglobin Concent 28.8L, Red Cell Distribution Width 16.7H, Platelet Count 292#, Mean Platelet Volume 9.0, Neutrophils (%) (Auto) , Lymphocytes (%) (Auto) , Monocytes (%) (Auto) , Eosinophils (%) (Auto) , Basophils (%) (Auto) , Differential Total Cells Counted 100, Neutrophils % (Manual) 55, Lymphocytes % (Manual) 27, Monocytes % (Manual) 17H, Eosinophils % (Manual) 0, Basophils % (Manual) 0, Band Neutrophils 1, Platelet Estimate Adequate, Platelet Morphology , Clumped Platelets 3+, Polychromasia 1+, Hypochromasia 1+, Anisocytosis 1+, Microcytosis 1+, Prothrombin Time 13.0H, Prothromb Time International Ratio 1.2H , Sodium Level 141, Potassium Level 3.3L, Chloride Level 106, Carbon Dioxide Level 28, Anion Gap 7, Blood Urea Nitrogen 1L, Creatinine 0.7, Estimat Glomerular Filtration Rate > 60, Glucose Level 94, Calcium Level 8.2L, Total Bilirubin 0.3, Aspartate Amino Transf (AST/SGOT) 16, Alanine Aminotransferase (ALT/SGPT) 7L, Alkaline Phosphatase 45L, Total Protein 5.8L, Albumin 2.9L, Globulin 2.9, Albumin/Globulin Ratio 1.0 Height (Feet): 5 Height (Inches): 7.00 Weight (Pounds): 174 General Appearance: alert EENT: normal ENT inspection Neck: normal alignment Cardiovascular: normal peripheral pulses, normal rate, regular rhythm Respiratory/Chest: chest wall non-tender, lungs clear, normal breath sounds Abdomen: normal bowel sounds, non tender, soft Extremities: normal inspection Edema: no edema noted Arm (L), no edema noted Arm (R), no edema noted Leg (L), no edema noted Leg (R), no edema noted Pedal (L), no edema noted Pedal (R), no edema noted Generalized Neurologic: responsive, motor weakness Skin: normal pigmentation, warm/dry Assessment/Plan Problem List: (1) Hypokalemia ICD Codes: E87.6 - Hypokalemia SNOMED: 08726052 (2) Anemia ICD Codes: D64.9 - Anemia, unspecified SNOMED: 555343193 (3) Marijuana abuse ICD Codes: F12.10 - Cannabis abuse, uncomplicated SNOMED: 51342066 (4) Vomiting ICD Codes: R11.10 - Vomiting, unspecified SNOMED: 661017732 (5) Cannabinoid hyperemesis syndrome ICD Codes: R11.2 - Nausea with vomiting, unspecified; F12.90 - Cannabis use, unspecified, uncomplicated SNOMED: 560307039, 940836953 (6) Thrombocytopenia ICD Codes: D69.6 - Thrombocytopenia, unspecified SNOMED: 222262834 (7) Abdominal pain ICD Codes: R10.9 - Unspecified abdominal pain SNOMED: 17346673 Status: stable, progressing Assessment/Plan: detox pain control gi heme f/u cbc bmp Kyle Pereira DO Mar 08, 2020 14:04
[2020-03-08 16:00] VITALS: BP 113/75
--- NOTE | 2020-03-08 19:30 | NUR ---
NURSE HAND-OFF: Important Events on Shift: advance diet, tolerated well Patient Status: stable Diet: regular Pending Orders: n/a Pending Results/Labs:n/a Pending MD notification:n/a Latest Vital Signs: Temperature 98.2 , Pulse 60 , B/P 113 /75 , Respiratory Rate 18 , O2 SAT 100 , Room Air, O2 Flow Rate . Vital Sign Comment: n/a Latest Johnson Fall Score: 35 Fall Risk: Medium Risk Safety Measures: Call light Within Reach, Side Rails x2, Bed position Low and Locked. Fall Precautions: Yellow Socks Door Sign Patient Fall Education Report given to Richard POLK.
--- NOTE | 2020-03-08 19:30 | NUR ---
NURSE NOTES: Received report from JAM Mcintosh and rounds made. Received pt laying in bed AOX4, denies any pain, no nausea or vomiting. IV L FA patent and intact. NAD noted. Bed in lowest position and locked. Call light within reach. Side rails up x 2. Will continue to monitor.
[2020-03-08 20:00] VITALS: BP 111/66
[2020-03-08] MEDS: Iron Sucrose 100 MG in NS 55 ML IVPB SCH (20:26)
[2020-03-09 04:00] VITALS: BP 110/61
[2020-03-09 05:47] LABS: BASOPHILS % (AUTO) 1.4 % (0.0-2.0); EOSINOPHILS % (AUTO) 0.5 % (0.0-3.0); HEMATOCRIT 33.2 % (37.0-47.0); HEMOGLOBIN 9.4 G/DL (12.0-16.0); LYMPHOCYTES % (AUTO) 42.9 % (20.0-45.0); MEAN CORPUSCULAR VOLUME 79 FL (80-99); MONOCYTES % (AUTO) 10.7 % (1.0-10.0); NEUTROPHILS % (AUTO) 44.5 % (45.0-75.0); PLATELET COUNT 120 K/UL (150-450); RED BLOOD COUNT 4.22 M/UL (4.20-5.40); WHITE BLOOD COUNT 6.1 K/UL (4.8-10.8)
[2020-03-09 05:54] LABS: INR 1.2 (0.9-1.1)
[2020-03-09 06:05] LABS: ALANINE AMINOTRANSFERASE < 6 U/L (12-78); ALBUMIN 3.2 G/DL (3.4-5.0); ALBUMIN/GLOBULIN RATIO 1.1 (1.0-2.7); ALKALINE PHOSPHATASE 53 U/L (46-116); ASPARTATE AMINO TRANSFERASE 12 U/L (15-37); BILIRUBIN,TOTAL 0.3 MG/DL (0.2-1.0); BLOOD UREA NITROGEN 2 mg/dL (7-18); CALCIUM 8.5 MG/DL (8.5-10.1); CARBON DIOXIDE 29 MMOL/L (21-32); CHLORIDE 106 MMOL/L (98-107); CREATININE 0.8 MG/DL (0.55-1.30); POTASSIUM 3.7 MMOL/L (3.5-5.1); SODIUM 140 MMOL/L (136-145)
--- NOTE | 2020-03-09 07:24 | NUR ---
NURSE HAND-OFF: Important Events on Shift:No c/o abd pain,no n/v Patient Status: Stable Diet: Regular Pending Orders: none Pending Results/Labs:none Pending MD notification:none Latest Vital Signs: Temperature 98.4 , Pulse 71 , B/P 110 /61 , Respiratory Rate 18 , O2 SAT 97 , Room Air, O2 Flow Rate . Vital Sign Comment: Latest Johnson Fall Score: 35 Fall Risk: Medium Risk Safety Measures: Call light Within Reach, Bed Alarm Zone 2, Side Rails Side Rails x2, Bed position Low and Locked. Fall Precautions: Yellow Socks Report given to .
--- NOTE | 2020-03-09 07:25 | NUR ---
HAND-OFF: Report given to: JAM Mcintosh
--- NOTE | 2020-03-09 07:30 | NUR ---
NURSE NOTES: Patient is in bed awake and able to verbalize needs. Stable. Denies pain or SOB. Plan of care discussed with patient. Patient instructed to use call light for assistance, verbalized understanding. All safety measures provided. All needs met at this time. Patient is in bed in locked and lowest position with call light within reach. Will continue to monitor.
--- NOTE | 2020-03-09 07:41 | NUR ---
NURSE NOTES: Received report from Richard POLK. Patient is awake and oriented x4. Patient denies pain. IV L FA intact and patent. Side rails up x3 and bed low and locked. patient appears comfortable. Will continue to monitor
[2020-03-09 08:00] VITALS: BP 113/69
--- NOTE | 2020-03-09 09:26 | Hematology/Onc Progress Note ---
Assessment/Plan Assessment/Plan Assessment and Resc # Thrombocytopenia acute onset, this is first time she has been admitted, no thrombocytopenia history in the past, no recent ingestion, no recent meds, no spont abortions --> hep and hiv ordered --> us abd ordered --> if above neg and repeat low plts start steriods --> r/o DIC as well --> meds reviewed --> 180-->60-->23-->143-->120 # Anemia r/o iron deficiency --> anemia panel ordered--> cw aid --> transfuse prn -> per gi eval --> IV IRON x 5 days started --> hgb 9.4 # Hypokalemia --> replete with k --> ivfs as needed # Abd pain -> Zofran and Pepcid --> do no smoke thc # Dvt ppx scds Appreciate consultation and dw RN Subjective Constitutional: Denies: no symptoms, chills, fever, malaise, weakness, other Cardiovascular: Denies: no symptoms, chest pain, edema, irregular heart rate, lightheadedness, palpitations, syncope, other Gastrointestinal/Abdominal: Denies: no symptoms, abdomen distended, abdominal pain, black stools, tarry stools, blood in stool, constipated, diarrhea, difficulty swallowing, nausea, poor appetite, poor fluid intake, rectal bleeding, vomiting, other Genitourinary: Denies: no symptoms, burning, discharge, frequency, flank pain, hematuria, incontinence, pain, urgency, other Neurologic/Psychiatric: Denies: no symptoms, anxiety, depressed, emotional problems, headache, numbness, paresthesia, pre-existing deficit, seizure, tingling, tremors, weakness, other Endocrine: Denies: no symptoms, excessive sweating, flushing, intolerance to cold, intolerance to heat, increased hunger, increased thirst, increased urine, unexplained weight gain, unexplained weight loss, other Hematologic/Lymphatic: Denies: no symptoms, anemia, easy bleeding, easy bruising, adenopathy, other Allergies: Coded Allergies: PENICILLINS (Unverified Allergy, Mild, 03/07/20) Uncoded Allergies: PENICILLIN (Allergy, Mild, 03/04/20) Subjective 03/08 no pain, no bleeding, abd feels better, on iv iron at bedside completed 03/09 labs reviewed, meds noted, no bleeding, dw rn, no major events Objective Objective Current Medications Medications (Trade) Dose Ordered Sig/Sharan Route PRN Reason Start Time Stop Time Status Last Admin Dose Admin Famotidine (Pepcid) 20 mg DAILY ORAL 03/08/20 09:00 06/06/20 08:59 03/09/20 08:56 Hydromorphone HCl (Dilaudid) 1 mg Q4H PRN IVP Severe Pain (Pain Scale 7-10) 03/07/20 20:15 03/14/20 20:14 03/07/20 20:22 Iron Sucrose 100 mg/Sodium Chloride 60 ml @ 240 mls/hr BEDTIME IVPB 03/07/20 21:00 03/11/20 21:14 03/08/20 20:26 Ondansetron HCl (Zofran) 4 mg Q4H PRN IVP Nausea & Vomiting 03/06/20 16:30 04/05/20 16:29 03/07/20 18:35 Last 24 Hour Vital Signs Date Time Temp Pulse Resp B/P (MAP) Pulse Ox O2 Delivery O2 Flow Rate FiO2 03/09/20 04:00 98.4 71 18 110/61 (77) 97 03/08/20 21:00 Room Air 03/08/20 20:00 98.5 73 18 111/66 (81) 97 03/08/20 16:00 98.2 60 18 113/75 (88) 100 03/08/20 12:00 98.3 60 18 113/75 (88) 99 03/08/20 09:00 Room Air 03/08/20 08:00 98.0 62 18 112/65 (81) 99 03/08/20 04:00 98.1 52 18 103/63 (76) 99 03/08/20 00:00 97.7 59 18 109/64 (79) 99 03/07/20 21:00 Room Air 03/07/20 20:00 98.2 61 15 120/78 (92) 100 03/07/20 16:00 98.6 56 15 111/69 (83) 99 03/07/20 12:00 97.2 62 15 104/67 (79) 99 Intake and Output 03/08/20 03/09/20 19:00 07:00 Intake Total 180 ml Balance 180 ml Intake Oral 120 ml IV Total 60 ml # Voids 2 Labs Test 03/06/20 11:52 03/06/20 14:27 03/07/20 05:21 03/07/20 06:46 White Blood Count 10.7 K/UL (4.8-10.8) 4.8 K/UL (4.8-10.8) 10.2 K/UL (4.8-10.8) Red Blood Count 4.67 M/UL (4.20-5.40) 4.01 M/UL (4.20-5.40) 3.92 M/UL (4.20-5.40) Hemoglobin 10.3 G/DL (12.0-16.0) 8.8 G/DL (12.0-16.0) 8.7 G/DL (12.0-16.0) Hematocrit 36.9 % (37.0-47.0) 31.9 % (37.0-47.0) 30.8 % (37.0-47.0) Mean Corpuscular Volume 79 FL (80-99) 80 FL (80-99) 79 FL (80-99) Mean Corpuscular Hemoglobin 22.1 PG (27.0-31.0) 22.0 PG (27.0-31.0) 22.2 PG (27.0-31.0) Mean Corpuscular Hemoglobin Concent 28.0 G/DL (32.0-36.0) 27.6 G/DL (32.0-36.0) 28.2 G/DL (32.0-36.0) Red Cell Distribution Width 17.4 % (11.6-14.8) 17.7 % (11.6-14.8) 17.1 % (11.6-14.8) Platelet Count 60 K/UL (150-450) 147 K/UL (150-450) 23 K/UL (150-450) Mean Platelet Volume 15.6 FL (6.5-10.1) 11.8 FL (6.5-10.1) 12.0 FL (6.5-10.1) Neutrophils (%) (Auto) % (45.0-75.0) 68.3 % (45.0-75.0) % (45.0-75.0) Lymphocytes (%) (Auto) % (20.0-45.0) 13.9 % (20.0-45.0) % (20.0-45.0) Monocytes (%) (Auto) % (1.0-10.0) 13.1 % (1.0-10.0) % (1.0-10.0) Eosinophils (%) (Auto) % (0.0-3.0) 0.0 % (0.0-3.0) % (0.0-3.0) Basophils (%) (Auto) % (0.0-2.0) 4.7 % (0.0-2.0) % (0.0-2.0) Differential Total Cells Counted 100 100 Neutrophils % (Manual) 69 % (45-75) 45 % (45-75) Lymphocytes % (Manual) 25 % (20-45) 40 % (20-45) Monocytes % (Manual) 6 % (1-10) 13 % (1-10) Eosinophils % (Manual) 0 % (0-3) 0 % (0-3) Basophils % (Manual) 0 % (0-2) 2 % (0-2) Band Neutrophils 0 % (0-8) 0 % (0-8) Platelet Estimate Adequate Decreased Platelet Morphology See comment Normal Clumped Platelets 3+ Hypochromasia 2+ 2+ Microcytosis 2+ 1+ Urine Color Pale yellow Urine Appearance Slightly cloudy Urine pH 6 (4.5-8.0) Urine Specific Hatley 1.015 (1.005-1.035) Urine Protein Negative (NEGATIVE) Urine Glucose (UA) Negative (NEGATIVE) Urine Ketones 4+ (NEGATIVE) Urine Blood Negative (NEGATIVE) Urine Nitrite Negative (NEGATIVE) Urine Bilirubin Negative (NEGATIVE) Urine Urobilinogen Normal MG/DL (0.0-1.0) Urine Leukocyte Esterase Negative (NEGATIVE) Urine RBC 0 /HPF (0 - 2) Urine WBC 0 /HPF (0 - 2) Urine Squamous Epithelial Cells Few /LPF (NONE/OCC) Urine Bacteria Moderate /HPF (NONE) Sodium Level 139 MMOL/L (136-145) 140 MMOL/L (136-145) Potassium Level 3.0 MMOL/L (3.5-5.1) 3.0 MMOL/L (3.5-5.1) Chloride Level 101 MMOL/L (98-107) 106 MMOL/L (98-107) Carbon Dioxide Level 22 MMOL/L (21-32) 27 MMOL/L (21-32) Anion Gap 16 mmol/L (5-15) 7 mmol/L (5-15) Blood Urea Nitrogen 5 mg/dL (7-18) 2 mg/dL (7-18) Creatinine 0.9 MG/DL (0.55-1.30) 0.8 MG/DL (0.55-1.30) Estimat Glomerular Filtration Rate > 60 mL/min (>60) > 60 mL/min (>60) Glucose Level 83 MG/DL (74-106) 96 MG/DL (74-106) Calcium Level 8.9 MG/DL (8.5-10.1) 8.0 MG/DL (8.5-10.1) Total Bilirubin 0.6 MG/DL (0.2-1.0) 0.3 MG/DL (0.2-1.0) Aspartate Amino Transf (AST/SGOT) 16 U/L (15-37) 15 U/L (15-37) Alanine Aminotransferase (ALT/SGPT) 9 U/L (12-78) 7 U/L (12-78) Alkaline Phosphatase 60 U/L (46-116) 46 U/L (46-116) Total Protein 8.5 G/DL (6.4-8.2) 6.5 G/DL (6.4-8.2) Albumin 4.2 G/DL (3.4-5.0) 3.1 G/DL (3.4-5.0) Globulin 4.3 g/dL 3.4 g/dL Albumin/Globulin Ratio 1.0 (1.0-2.7) 0.9 (1.0-2.7) Lipase 226 U/L (73-393) Urine Opiates Screen Negative (NEGATIVE) Urine Barbiturates Screen Negative (NEGATIVE) Phencyclidine (PCP) Screen Negative (NEGATIVE) Urine Amphetamines Screen Negative (NEGATIVE) Urine Benzodiazepines Screen Negative (NEGATIVE) Urine Cocaine Screen Negative (NEGATIVE) Urine Marijuana (THC) Screen Positive (NEGATIVE) Anisocytosis 1+ Ovalocytes Occasional Iron Level 9 ug/dL (50-175) Total Iron Binding Capacity 372 ug/dL (250-450) Percent Iron Saturation 2 % (15-50) Unsaturated Iron Binding 363 ug/dL (112-346) Ferritin 7 NG/ML (8-388) Lactate Dehydrogenase 189 U/L (81-234) Amylase Level 46 U/L (25-115) Vitamin B12 Level 255 PG/ML (193-986) Folate 13.2 NG/ML (8.6-58.9) HIV (1&2) Antibody Rapid Negative (NEGATIVE) Stool Occult Blood Negative (NEGATIVE) Test 03/07/20 08:25 03/08/20 04:50 03/09/20 05:00 White Blood Count 5.4 K/UL (4.8-10.8) 5.3 K/UL (4.8-10.8) 6.1 K/UL (4.8-10.8) Red Blood Count 4.11 M/UL (4.20-5.40) 3.89 M/UL (4.20-5.40) 4.22 M/UL (4.20-5.40) Hemoglobin 9.2 G/DL (12.0-16.0) 8.5 G/DL (12.0-16.0) 9.4 G/DL (12.0-16.0) Hematocrit 32.2 % (37.0-47.0) 29.6 % (37.0-47.0) 33.2 % (37.0-47.0) Mean Corpuscular Volume 78 FL (80-99) 76 FL (80-99) 79 FL (80-99) Mean Corpuscular Hemoglobin 22.3 PG (27.0-31.0) 21.9 PG (27.0-31.0) 22.2 PG (27.0-31.0) Mean Corpuscular Hemoglobin Concent 28.5 G/DL (32.0-36.0) 28.8 G/DL (32.0-36.0) 28.2 G/DL (32.0-36.0) Red Cell Distribution Width 17.0 % (11.6-14.8) 16.7 % (11.6-14.8) 17.0 % (11.6-14.8) Platelet Count 143 K/UL (150-450) 292 K/UL (150-450) 120 K/UL (150-450) Mean Platelet Volume 12.0 FL (6.5-10.1) 9.0 FL (6.5-10.1) 9.9 FL (6.5-10.1) Neutrophils (%) (Auto) 47.1 % (45.0-75.0) % (45.0-75.0) 44.5 % (45.0-75.0) Lymphocytes (%) (Auto) 37.6 % (20.0-45.0) % (20.0-45.0) 42.9 % (20.0-45.0) Monocytes (%) (Auto) 13.2 % (1.0-10.0) % (1.0-10.0) 10.7 % (1.0-10.0) Eosinophils (%) (Auto) 0.6 % (0.0-3.0) % (0.0-3.0) 0.5 % (0.0-3.0) Basophils (%) (Auto) 1.6 % (0.0-2.0) % (0.0-2.0) 1.4 % (0.0-2.0) Hepatitis A IgM Antibody Negative (Negative) Hepatitis B Surface Antigen Negative (Negative) Hepatitis B Core IgM Antibody Negative (Negative) Hepatitis C Antibody <0.1 s/co ratio Differential Total Cells Counted 100 Neutrophils % (Manual) 55 % (45-75) Lymphocytes % (Manual) 27 % (20-45) Monocytes % (Manual) 17 % (1-10) Eosinophils % (Manual) 0 % (0-3) Basophils % (Manual) 0 % (0-2) Band Neutrophils 1 % (0-8) Platelet Estimate Adequate Platelet Morphology Clumped Platelets 3+ Polychromasia 1+ Hypochromasia 1+ Anisocytosis 1+ Microcytosis 1+ Prothrombin Time 13.0 SEC (9.30-11.50) 12.7 SEC (9.30-11.50) Prothromb Time International Ratio 1.2 (0.9-1.1) 1.2 (0.9-1.1) Sodium Level 141 MMOL/L (136-145) 140 MMOL/L (136-145) Potassium Level 3.3 MMOL/L (3.5-5.1) 3.7 MMOL/L (3.5-5.1) Chloride Level 106 MMOL/L (98-107) 106 MMOL/L (98-107) Carbon Dioxide Level 28 MMOL/L (21-32) 29 MMOL/L (21-32) Anion Gap 7 mmol/L (5-15) Blood Urea Nitrogen 1 mg/dL (7-18) 2 mg/dL (7-18) Creatinine 0.7 MG/DL (0.55-1.30) 0.8 MG/DL (0.55-1.30) Estimat Glomerular Filtration Rate > 60 mL/min (>60) > 60 mL/min (>60) Glucose Level 94 MG/DL (74-106) 81 MG/DL (74-106) Calcium Level 8.2 MG/DL (8.5-10.1) 8.5 MG/DL (8.5-10.1) Total Bilirubin 0.3 MG/DL (0.2-1.0) 0.3 MG/DL (0.2-1.0) Aspartate Amino Transf (AST/SGOT) 16 U/L (15-37) 12 U/L (15-37) Alanine Aminotransferase (ALT/SGPT) 7 U/L (12-78) < 6 U/L (12-78) Alkaline Phosphatase 45 U/L (46-116) 53 U/L (46-116) Total Protein 5.8 G/DL (6.4-8.2) 6.2 G/DL (6.4-8.2) Albumin 2.9 G/DL (3.4-5.0) 3.2 G/DL (3.4-5.0) Globulin 2.9 g/dL 3.0 g/dL Albumin/Globulin Ratio 1.0 (1.0-2.7) 1.1 (1.0-2.7) Height (Feet): 5 Height (Inches): 7.00 Weight (Pounds): 174 Objective GENERAL: Awake alert HEENT: Extraocular muscles are intact. RESP: Normal respiratory effort. Symmetric rise. No stridor. Ctab CARDIAC: Bradycardic and regular rhytm. No_significant pedal edema. Negative Terry sign. Negative Rovsing's. ABDOMEN: Soft. Nondistended. MSK: Normal muscle tone, without rigidity. SKIN: Warm and dry. No visible cyanosis NEUROLOGIC: Alert, oriented x3. Psych: Normal mood and affect Carrington Woo MD Mar 09, 2020 09:26
--- NOTE | 2020-03-09 10:16 | General Progress Note ---
Subjective Allergies: Coded Allergies: PENICILLINS (Unverified Allergy, Mild, 03/07/20) Uncoded Allergies: PENICILLIN (Allergy, Mild, 03/04/20) All Systems: reviewed and negative except above Subjective calm in bed Objective Last 24 Hour Vital Signs Date Time Temp Pulse Resp B/P (MAP) Pulse Ox O2 Delivery O2 Flow Rate FiO2 03/09/20 09:00 Room Air 03/09/20 08:00 98.3 64 20 113/69 (84) 100 03/09/20 04:00 98.4 71 18 110/61 (77) 97 03/08/20 21:00 Room Air 03/08/20 20:00 98.5 73 18 111/66 (81) 97 03/08/20 16:00 98.2 60 18 113/75 (88) 100 03/08/20 12:00 98.3 60 18 113/75 (88) 99 Intake and Output 03/08/20 03/09/20 19:00 07:00 Intake Total 180 ml Balance 180 ml Intake Oral 120 ml IV Total 60 ml # Voids 2 Laboratory Tests 03/09/20 05:00: White Blood Count 6.1, Red Blood Count 4.22, Hemoglobin 9.4L, Hematocrit 33.2L, Mean Corpuscular Volume 79L, Mean Corpuscular Hemoglobin 22.2L, Mean Corpuscular Hemoglobin Concent 28.2L, Red Cell Distribution Width 17.0H, Platelet Count 120#L, Mean Platelet Volume 9.9, Neutrophils (%) (Auto) 44.5L, Lymphocytes (%) (Auto) 42.9, Monocytes (%) (Auto) 10.7H, Eosinophils (%) (Auto) 0.5, Basophils (%) (Auto) 1.4, Prothrombin Time 12.7H, Prothromb Time International Ratio 1.2H, Sodium Level 140, Potassium Level 3.7, Chloride Level 106, Carbon Dioxide Level 29, Blood Urea Nitrogen 2L, Creatinine 0.8, Estimat Glomerular Filtration Rate > 60, Glucose Level 81, Calcium Level 8.5, Total Bilirubin 0.3, Aspartate Amino Transf (AST/SGOT) 12L, Alanine Aminotransferase (ALT/SGPT) < 6L, Alkaline Phosphatase 53, Total Protein 6.2L, Albumin 3.2L, Globulin 3.0, Albumin/Globulin Ratio 1.1 Height (Feet): 5 Height (Inches): 7.00 Weight (Pounds): 174 General Appearance: lethargic EENT: normal ENT inspection Neck: normal alignment Cardiovascular: normal peripheral pulses, normal rate, regular rhythm Respiratory/Chest: chest wall non-tender, lungs clear, normal breath sounds Abdomen: normal bowel sounds, non tender, soft Extremities: normal inspection Edema: no edema noted Arm (L), no edema noted Arm (R), no edema noted Leg (L), no edema noted Leg (R), no edema noted Pedal (L), no edema noted Pedal (R), no edema noted Generalized Neurologic: motor weakness Skin: normal pigmentation, warm/dry Assessment/Plan Problem List: (1) Hypokalemia ICD Codes: E87.6 - Hypokalemia SNOMED: 71773532 (2) Anemia ICD Codes: D64.9 - Anemia, unspecified SNOMED: 455027897 (3) Marijuana abuse ICD Codes: F12.10 - Cannabis abuse, uncomplicated SNOMED: 78220859 (4) Vomiting ICD Codes: R11.10 - Vomiting, unspecified SNOMED: 555571002 (5) Cannabinoid hyperemesis syndrome ICD Codes: R11.2 - Nausea with vomiting, unspecified; F12.90 - Cannabis use, unspecified, uncomplicated SNOMED: 655760159, [id number] (6) Thrombocytopenia ICD Codes: D69.6 - Thrombocytopenia, unspecified SNOMED: 764132763 (7) Abdominal pain ICD Codes: R10.9 - Unspecified abdominal pain SNOMED: 37931435 Status: stable, progressing Assessment/Plan: detox pain control gi heme f/u dc if clear Kyle Bob DO Mar 09, 2020 10:16
--- NOTE | 2020-03-09 12:07 | General Progress Note ---
Subjective ROS Limited/Unobtainable: No Allergies: Coded Allergies: PENICILLINS (Unverified Allergy, Mild, 03/07/20) Uncoded Allergies: PENICILLIN (Allergy, Mild, 03/04/20) Objective Last 24 Hour Vital Signs Date Time Temp Pulse Resp B/P (MAP) Pulse Ox O2 Delivery O2 Flow Rate FiO2 03/09/20 09:00 Room Air 03/09/20 08:00 98.3 64 20 113/69 (84) 100 03/09/20 04:00 98.4 71 18 110/61 (77) 97 03/08/20 21:00 Room Air 03/08/20 20:00 98.5 73 18 111/66 (81) 97 03/08/20 16:00 98.2 60 18 113/75 (88) 100 Intake and Output 03/08/20 03/09/20 19:00 07:00 Intake Total 180 ml Balance 180 ml Intake Oral 120 ml IV Total 60 ml # Voids 2 Laboratory Tests 03/09/20 05:00: White Blood Count 6.1, Red Blood Count 4.22, Hemoglobin 9.4L, Hematocrit 33.2L, Mean Corpuscular Volume 79L, Mean Corpuscular Hemoglobin 22.2L, Mean Corpuscular Hemoglobin Concent 28.2L, Red Cell Distribution Width 17.0H, Platelet Count 120#L, Mean Platelet Volume 9.9, Neutrophils (%) (Auto) 44.5L, Lymphocytes (%) (Auto) 42.9, Monocytes (%) (Auto) 10.7H, Eosinophils (%) (Auto) 0.5, Basophils (%) (Auto) 1.4, Prothrombin Time 12.7H, Prothromb Time International Ratio 1.2H, Sodium Level 140, Potassium Level 3.7, Chloride Level 106, Carbon Dioxide Level 29, Blood Urea Nitrogen 2L, Creatinine 0.8, Estimat Glomerular Filtration Rate > 60, Glucose Level 81, Calcium Level 8.5, Total Bilirubin 0.3, Aspartate Amino Transf (AST/SGOT) 12L, Alanine Aminotransferase (ALT/SGPT) < 6L, Alkaline Phosphatase 53, Total Protein 6.2L, Albumin 3.2L, Globulin 3.0, Albumin/Globulin Ratio 1.1 Height (Feet): 5 Height (Inches): 7.00 Weight (Pounds): 174 General Appearance: alert EENT: normal ENT inspection Neck: normal alignment Cardiovascular: normal rate Respiratory/Chest: decreased breath sounds Abdomen: hypoactive bowel sounds Extremities: non-tender Assessment/Plan Problem List: (1) Cannabinoid hyperemesis syndrome ICD Codes: R11.2 - Nausea with vomiting, unspecified; F12.90 - Cannabis use, un specified, uncomplicated SNOMED: 173333627, 583542553 (2) Vomiting ICD Codes: R11.10 - Vomiting, unspecified SNOMED: 820527520 (3) Abdominal pain ICD Codes: R10.9 - Unspecified abdominal pain SNOMED: 52480117 (4) Thrombocytopenia ICD Codes: D69.6 - Thrombocytopenia, unspecified SNOMED: 883541773 (5) Anemia ICD Codes: D64.9 - Anemia, unspecified SNOMED: 279848484 (6) Hypokalemia ICD Codes: E87.6 - Hypokalemia SNOMED: 63397059 Status: stable, progressing Assessment/Plan: pain control control nausea anemia work up>>> irob def>>> add venofer>>> fu stool ob>>>neg repeat labs avoid THC on reg diet hem in put appreciated Francesco Johnson MD Mar 09, 2020 12:07
--- NOTE | 2020-03-09 12:37 | NUR ---
NURSE NOTES: Discharge instruction was given by RN. Patient is aware. Patient is leaving herself with uber. IV is removed. Skin is intact. Patient received all belongings. Questions were answered.
--- NOTE | 2020-03-09 12:44 | NUR ---
NURSE NOTES: Patient was escorted to her uber by RN.
--- NOTE | 2020-03-12 01:02 | Discharge Summary ---
Discharge Summary Discharge Summary _ DATE OF ADMISSION: 03/06/2020 DATE OF DISCHARGE: 03/09/2020 DISCHARGED BY: Dr. Kyle Bob CONSULTANTS: Dr. Reynold Woo BRIEF HOSPITAL COURSE: Patient is a 34-year-old female, who lives at home, presented due to 3 days of abdominal pain, nausea and vomiting. Patient was unable to recall if she ate anything bad, she presented to [facility]. She was seen the day prior at the ED. She stated that she had been taking Zofran and Pepcid without relief of her abdominal pain, nausea and vomiting. She denied melena, hematochezia, dysuria, hematuria, fall, trauma, fever, chest pain, shortness of breath, cough or any other symptom. Symptoms were gradual in onset. She has history of marijuana use. Upon evaluation at ED, vital signs were stable. Patient was actively retching o n examination. She had diffuse voluntary guarding without any evidence of peritonitis. Blood work showed new onset of thrombocytopenia. No evidence of TTP. No evidence of DIC. She was not actively bleeding. Platelets were down compared to prior lab few days ago. CT of the abdomen was negative for acute surgical pathology. Patient was then admitted for evaluation of abdominal pain and thrombocytopenia. Patient was admitted to medical floor. Diet was advanced. She was given potassium replacement. She was given pain management. She was continued on Zofran and Pepcid. She was counseled marijuana cessation. Patient has new onset thrombocytopenia. She denied any prior history of thrombocytopenia, no recent ingestion, no recent medications nor spontaneous . Anemia work-up showed iron deficiency. She was given IV Venofer. Stool OB was negative. Abdominal ultrasound was negative. Spleen was unremarkable. Liver with normal echogenicity. HIV screen negative. Hepatitis panel negative. Platelet count eventually went up. Patient was cleared for discharge home. FINAL DIAGNOSES: Cannabinoid hyperemesis syndrome, Thrombocytopenia Iron deficiency anemia Hypokalemia Marijuana abuse DISPOSITION: Patient was discharged home. DISCHARGE MEDICATIONS: Refer to Discharge Medication List. DISCHARGE INSTRUCTIONS: Follow-up in a week. I have been assigned to complete a discharge summary on this account, I was not involved with the patient's management.--BALWINDER Arriaga Jacqueline Robles NP Mar 12, 2020 01:02
== END 2020-03-09 12:42 | disposition home or self-care (01) | DRG 425 ==
LOC: EMR 12:05 → 3E 13:24 → EDBEDREQ 13:55 → 3E 14:50
DX: E87.6 Hypokalemia (principal); R10.9 Unspecified abdominal pain; F12.10 Cannabis abuse, uncomplicated; R11.2 Nausea with vomiting, unspecified; D69.6 Thrombocytopenia, unspecified; Z88.0 Allergy status to penicillin; D50.9 Iron deficiency anemia, unspecified
CPT/HCPCS: 36415; 74177; 76700; 80053; 80307; 81003; 82150; 82270; 82607; 82728; 82746; 83540; 83550; 83615; 83690; 85007; 85025; 85610; 86703; 86705; 86709; 86803; 87086; 87340; 96365; 96368; 96372; 96375; 96376; 99285; J2405; J8499